=== PATIENT | male | born 1960 | race Caucasian/White ===

== ENCOUNTER 2024-06-03 11:54 | Inpatient (IN) | payer MEDICARE, OTHER, SELFPAY ==
[2024-06-03] VITALS (10 sets, daily range): BP systolic 101–144; BP diastolic 59–104; BMI 26.3; BMI 25.2
--- NOTE | 2024-06-03 09:37 | ED.GENMED ---
History of Present Illness
General
Chief Complaint: Fever
Time Seen by Provider: 06/03/24 09:29
History of Present Illness
History of Present Illness:
64-year-old male presents to the emergency department from [facility] for evaluation of altered mental status and fever as well as hypoxia. First noted this morning. Patient does have vascular dementia but was more confused and fatigued than
normal. Unable to obtain any history from the patient due to altered mental status/baseline dementia. Arrives on supplemental oxygen
Past History
Past History
ED Past Medical History: CAD, HTN, Hypercholesterolemia, MD and Psychiatric
ED Past Surgical History: Cardiac (Cardiac stenting)
Social History
Tobacco: Smoker
Alcohol: Daily (4 [employer] per day)
Drug: None
Personal:
Living: with family
Employment: Employed
Family History
Family History: Early CAD
Review of Systems
Review of Systems
Allergies reviewed?: Yes
All Other Systems: ROS reviewed and negative except as documented in HPI and ROS
Phy Exam
Physical Exam
Physical Exam:
GEN: Ill-appearing, disheveled
Eyes: PERRLA, EOMs intact, no scleral icterus
HENT: NCAT, oral mucosa dry
Lungs: Tachypneic, poor inspiratory effort, mild expiratory wheezes heard throughout
Cardiac: RRR, no M/R/G, no peripheral edema. Radial pulses 2+ bilat
Abdomen: S, NT, ND, NABS, no masses or hepatosplenomegaly
Neuro: Alert, follows commands intermittently, profoundly disoriented
MSK: No gross deformity or ecchymosis. No edema. No digital clubbing
Skin: No rashes, petechiae. Normal color, no pallor or jaundice.
Sepsis
Sepsis Screening
Sepsis Assessment: Sepsis Ruled Out
Sepsis Screen
Sepsis Screen: Sepsis Ruled Out
Date: 06/03/24
Time: 15:47
Course
Orders/Labs/Results
Orders:
Orders
06/03/24 09:36
Straight cath- Treatment ONCE
Acetaminophen [Tylenol/Feverall] 650 mg RECTAL NOW STA
06/03/24 09:37
CR Chest Portable - 1 View Urgent
Comment:
Reason For Exam: fever/hypoxia
Reason Study Needs to be Portable: Other
06/03/24 09:44
COVID-19 Antigen Urgent
Source: Nasal Swab
Complete Blood Count/With Diff Urgent
Comprehensive Metabolic Panel Urgent
Lactic Acid Q4H
Comment: CANCEL 2nd LACTIC ACID IF 1st LACTIC ACID IS LESS THAN 2
Prothrombin Time Urgent
Urinalysis Reflex To Culture Urgent
Date Specimen was Collected: 06/03/24
Time Specimen was Collected: 09:38
Urine Microscopic Reflex Cult Urgent
Blood Culture Q30M
NATALIA Source: Blood/Venous
Specimen Description:
Influenza A+B Rapid Molecular Urgent
NATALIA Source: Nasal Swab
Specimen Description:
06/03/24 09:45
Blood Culture Q30M
NATALIA Source: Blood/Venous
Specimen Description:
06/03/24 10:32
Oseltamivir [Tamiflu] 75 mg PO NOW STA
06/03/24 11:29
Admit/Transfer Patient As Directed
Co-Sign Provider:
Level of Care: Inpatient admission
Assign to:: Telemetry
Physician / Group: Dr. Rome
Diagnosis: Influenza A
Reason for Telemetry: Arrhythmia
Date to Stop Telemetry: 06/06/24
Time to Stop Telemetry: 11:00
Reason for Hospitalization: Patient presented with hypoxia cough shortness of breath and found influenza
Expected length of stay greater than two midnights?: Yes
ELOS- Estimated Length of Stay in days: 2
I certify the patient meets the requirements for IP care: Yes
06/03/24 11:30
PRN Pain Medication Management As Directed
May give lesser potent ordered pain med per pt: Yes
preference::
Protocol:: Medication orders for pain may be administered in a
manner that supports deferring to patient preference
when the pt is:
- Requesting an ordered lesser potent pain medication.
Least to most potent pain medications are defined
as: acetaminophen < NSAID < tramadol < opioids
(morphine, oxycodone, hydromorphone).
- Requesting a lesser dose of the same medication IF
ORDERED.
- Requesting a less intrusive route of administration
if both routes are prescribed by the provider (PO <
IV).
06/03/24 11:32
Code Status As Directed
Resuscitation Status: Full Code
06/03/24 20:00
Oseltamivir Phosphate [Tamiflu] 75 mg PO BID
06/06/24 11:00
DC Protocol for Telemetry ONCE
Abnormal Lab Results
06/03/24
09:44
Absolute Lymphs (auto) 0.5 L 10^3/uL
(1.2-3.4)
Neutrophils % 84.2 H %
(42.2-75.2)
Lymphocytes % 7.2 L %
(20.5-51.1)
Glucose 165 H mg/dl
(70-99)
AST 91 H U/L
(17-59)
Urine Ketones 1+ A
(Negative)
Ur Occult Blood Reflex 2+ A
(Negative)
Urine Bacteria (Reflex) Few A
(Negative)
06/03/24 09:44
06/03/24 09:44
Vital Signs
Initial and Last Documented VS:
Initial Vital Signs
Temp Pulse Resp BP Pulse Ox
103.5 F H 92 22 138/79 88
06/03/24 09:28 06/03/24 09:28 06/03/24 09:28 06/03/24 09:28 06/03/24 09:28
Last Documented Vital Signs
Temp Pulse Resp BP Pulse Ox
99.4 F 86 18 117/104 97
06/03/24 11:40 06/03/24 11:40 06/03/24 11:40 06/03/24 11:40 06/03/24 11:40
MDM/Problems Addressed
MDM/Problems Addressed:
Patient is positive for influenza, mildly hypoxic in the upper 80s. Will admit for supportive management, antiviral started in the emergency department.
*Critical Care Note
Total Time (30-74mins, 75-104mins- exclusive of procedures): Not Applicable
ED Attending Note
-
Portions of this chart may have been created with voice recognition software.� Occasional wrong word or��sound alike� substitutions may have occurred due to the inherent limitations of voice recognition software.
Discharge Plan
Departure
Patient Disposition: Admit
Date of Disposition: 06/03/24
Time of Disposition: 10:29
Admit to: Med/Surg
Presentation/result/management discussed w/ accepting MD/DO: Hospitalist
Discharge Problem:
Influenza A, Acute hypoxemic respiratory failure
Interventions
Interventions:
*Risk Screen - Suicide Last Done: 06/03/24 09:28
*General Assessment Last Done: 06/03/24 09:28
*Neglect/Abuse Screening Last Done: 06/03/24 09:28
ED- Fall Risk Assessment Last Done: 06/03/24 10:03
*ED COVID-19 Vaccine History Last Done: 06/03/24 09:28
ED- Neurological Assessment Last Done: 06/03/24 10:03
ED-Skin Assessment Last Done: 06/03/24 10:03
[2024-06-03] MEDS: TYLENOL/FEVERALL 650 MG RECTAL (09:41)
[2024-06-03 09:59] LABS: % Basophils 0.3 % (0-2); % Eosinophils 0.7 % (0-6); % Immature Granulocytes 0.1 % (0-0.5); % Lymphocytes 7.2 % (20.5-51.1); % Monocytes 7.5 % (1.7-9.3); % Neutrophils 84.2 % (42.2-75.2); Absolute Eosinophils 0.1 10^3/uL (0-0.7); Absolute Lymphocytes 0.5 10^3/uL (1.2-3.4); Absolute Monocytes 0.5 10^3/uL (0.1-0.6); Hematocrit 46.4 % (39.0-52.0); Hemoglobin 15.7 g/dL (13.0-18.0); Mean Corp Hgb Conc. 33.8 g/dL (33.0-37.0); Mean Corpuscular Hgb 29.1 pg (27.0-31.0); Mean Corpuscular Volume 86.1 fL (80.0-94.0); Nucleated Red Blood Cells % 0 % (-); Platelet Count 151 10^3/uL (130-400); Red Blood Cell Count 5.39 10^6/uL (4.70-6.10); Red Cell Dist. Width 13.5 % (11.5-14.5); White Blood Cell Count 7.1 10^3/uL (4.8-10.8)
[2024-06-03 10:10] LABS: Lactic Acid 1.8 mmol/L (0.7-2.0)
--- NOTE | 2024-06-03 10:10 | EDRN ---
the pt is resting in the stretcher in the lowest position, side rails up x2, call rivero within reach, HOB elevated, no s/s of distress, the pt is pleasantly confused, the pt is febrile, rectal tylenol given, labs and swabs obtained and sent, VS WNL,
the pt denies needing anything at this time, will continue to monitor the pt closely
[2024-06-03 10:11] LABS: INR 0.99; PT 13.6 Sec (11.4-14.6)
[2024-06-03 10:18] LABS: ALT (SGPT) 29 U/L (0-50); AST (SGOT) 91 U/L (17-59); Albumin 4.5 g/dl (3.5-5.0); Alkaline Phosphatase 83 U/L (38-126); Blood Urea Nitrogen 18 mg/dl (9-20); Calcium 9.2 mg/dl (8.4-10.2); Carbon Dioxide 27 mmol/L (22-30); Chloride 102 mmol/L (98-107); Estimated Creatinine Clearance 62 ml/min; Glucose 165 mg/dl (70-99); Potassium 4.2 mmol/L (3.5-5.1); Sodium 138 mmol/L (135-145); Total Bilirubin 0.7 mg/dl (0.2-1.3); Total Protein 7.1 g/dl (6.3-8.2); eGFR > 60.00
[2024-06-03 10:24] LABS: COVID-19 Antigen Negative (Negative)
[2024-06-03 10:44] LABS: Urine Albumin Trace (Neg - Trace); Urine Bilirubin Negative (Negative); Urine Character Clear (Clear); Urine Color Yellow; Urine Glucose Negative (Negative); Urine Ketone 1+ (Negative); Urine Leukocyte Negative (Negative); Urine Nitrite Negative (Negative); Urine Occult Blood 2+ (Negative); Urine Urobilinogen Negative (Neg - 1+)
[2024-06-03] MEDS: TAMIFLU 75 MG PO ×2 (11:06→20:27)
[2024-06-03 11:26] LABS: Urine Squamous Cell 0-2 /LPF (Few)
[2024-06-03 11:27] LABS: Urine Bacteria Few (Negative); Urine Red Blood Cell 0-2 /HPF (0-2)
--- NOTE | 2024-06-03 11:35 | HPS.HSE ---
Family Physician
-
Family Physician: Emilio Joiner
Chief Complaint
-
Cough and shortness of breath
History of Present Illness
Patient is 64-year-old male with history of hyperlipidemia, CAD, BPH, schizoaffective disorder came into the hospital with mental status changes fever and hypoxia. Patient has been having cough and shortness of breath over the last few days and he
also has been noticed to be more confused than usual. He expresses significant fatigue. He denies nausea vomiting or diarrhea. He denies chest pain. He denies abdominal pain. He denies dysuria urgency or frequency. He had a fever to 103
Fahrenheit here in the ER and he was hypoxic and placed on supplemental oxygen and he was found to have influenza A. He was referred to hospitalist service for further evaluation
Medical History
Past Medical History
Past Medical History: Reports Other (Hyperlipidemia, schizoaffective disorder, BPH, CAD.)
Past Surgical History: Reports Other (Cardiac cath with PCI's and stents in the past)
Social History
Tobacco: Former Smoker
Alcohol: Occasional
Drug: None
Family History
Family History: Early CAD
Allergies / Home Medications
Allergies reflects when Allergies were last updated in [employer] [facility].
Home Medications with original date entered in [employer]
Allergy/Medication List:
Allergies
Allergy/AdvReac Type Severity Reaction Status Date / Time
risperidone [From Risperdal] Allergy Unknown Unknown Verified 06/03/24 09:37
benztropine mesylate Allergy Blurred Verified 06/03/24 09:37
[From Cogentin] Vision
haloperidol Allergy Rigidity Verified 06/03/24 09:37
Home Medications
aspirin 81 mg tablet,delayed release 81 mg PO DAILY 09/28/10
lithium carbonate 450 mg tablet,extended release 450 mg PO HS 09/28/10
acetaminophen 325 mg tablet (Tylenol) 650 mg PO Q4HPRN PRN MILD PAIN 06/03/24
acetaminophen 500 mg tablet (Tylenol Extra Strength) 1,000 mg PO TIDPRN PRN MODERATE PAIN 06/03/24
atorvastatin 10 mg tablet (Lipitor) 10 mg PO HS 06/03/24
bisacodyl 10 mg rectal suppository (Dulcolax (bisacodyl)) 10 mg WV DAILYPRN PRN IF NO BM AFTR MOM 06/03/24
buspirone 5 mg tablet 5 mg PO BID 06/03/24
diclofenac sodium 1 % topical gel 2 g topical BID LEFT ARM/SHOULDER AND ANN-MARIE 06/03/24
dorzolamide-timolol (PF) 2 %-0.5 % eye drops in a dropperette (Cosopt (PF)) 1 drp BOTH EYES BID 06/03/24
fluticasone propionate 50 mcg/actuation nasal spray,suspension 2 spray intranasal DAILY 06/03/24
ipratropium 0.5 mg-albuterol 3 mg (2.5 mg base)/3 mL nebulization soln 3 ml inhalation R Q4HPRN PRN SOB 06/03/24
ipratropium 0.5 mg-albuterol 3 mg (2.5 mg base)/3 mL nebulization soln 3 ml inhalation R QID 06/03/24
ketoconazole 2 % shampoo 1 applic topical TUFR 06/03/24
latanoprostene bunod 0.024 % eye drops 1 drp BOTH EYES QPM 06/03/24
lidocaine 4 % topical patch 1 patch topical DAILY LEFT UPPER ARM 06/03/24
loperamide 2 mg capsule (Imodium A-D) 2 mg PO Q6HPRN PRN DIARRHEA 06/03/24
magnesium hydroxide 400 mg/5 mL oral suspension (Milk of Magnesia) 2,400 mg PO [id number] PRN CONSTIPATION 06/03/24
melatonin 5 mg tablet 5 mg PO HSPRN PRN SLEEP 06/03/24
miconazole nitrate 2 % topical powder (Antifungal (miconazole)) 1 applic topical BID GROIN 06/03/24
mometasone 0.1 % topical cream 1 applic topical [id number] PRN FACE RASH 06/03/24
nitroglycerin 0.4 mg sublingual tablet (Nitrostat) 0.4 mg sublingual [id number] PRN CHEST PAIN 06/03/24
olanzapine 5 mg tablet (Zyprexa) 5 mg PO HS 06/03/24
sodium phosphates 19 gram-7 gram/118 mL enema (Fleet Enema) 118 ml WV DAILYPRN PRN CONSTIPATION 06/03/24
tamsulosin 0.4 mg capsule (Flomax) 0.4 mg PO HS 06/03/24
Review of Systems
-
A 12 point ROS was completed and negative except as noted: Yes
Physical Exam
Vital Signs
Vital Signs
Temp Pulse Resp BP Pulse Ox
103 F H 87 20 129/76 96
06/03/24 10:00 06/03/24 11:11 06/03/24 11:11 06/03/24 10:00 06/03/24 11:11
Physical exam:
General: Acutely ill
HEENT: Normocephalic, Atraumatic and Moist Mucous Membranes
Respiratory: Relatively clear to Auscultation but some scattered rhonchi; Negative Wheezes, Rales
Cardiac: Regular Rhythm and S1/S2
GI: Soft, Nontender and Nondistended
Musculoskeletal: No Clubbing, No Cyanosis and No Edema
Neuro: Awake, Alert and Oriented
Psych: Calm
Physical Exam
General: Other
Laboratory Results
-
06/03/24 09:44
06/03/24 09:44
Laboratory Results
PT 13.6 Sec (11.4-14.6) 06/03/24 09:44
INR 0.99 06/03/24 09:44
Lactic Acid 1.8 mmol/L (0.7-2.0) 06/03/24 09:44
Total Bilirubin 0.7 mg/dl (0.2-1.3) 06/03/24 09:44
AST 91 U/L (17-59) H 06/03/24 09:44
ALT 29 U/L (0-50) 06/03/24 09:44
Alkaline Phosphatase 83 U/L (38-126) 06/03/24 09:44
Data Reviewed
-
Diagnostic Radiology: Image Personally Visualized and interpreted
Lab Data: Labs Reviewed by me
Impression/Plan
-
IMPRESSION:
Patient is 64-year-old male with multiple comorbidities came into the hospital with hypoxia and fever likely related to influenza A. Patient at increased risk of morbidity mortality due to current active infection therefore will need to be treated
in the hospital and monitor accordingly.
PLAN:
Acute hypoxic respiratory insufficiency:
Bronchodilators
Incentive spirometry
Seen and reviewed chest x-ray and no evidence of acute chest pathology but some atelectasis
Antiviral
Oxygen supplementation
Monitor closely since he is at risk of deterioration
Influenza A:
Tamiflu 75 mg twice a day
Monitor respiratory status closely as above
Febrile illness likely related to influenza:
Follow-up blood cultures
Chest x-ray not significant for consolidation
UA unremarkable
Lactic acid normal 1.8
CAD:
Continue aspirin and statin
Chest pain-free
Cardiac monitoring
Hyperlipidemia:
Continue statin
BPH:
Continue Flomax
Schizoaffective disorder:
Continue Zyprexa 5 mg p.o. nightly and lithium 450 mg p.o. nightly
DVT prophylaxis:
Lovenox SQ
CODE STATUS:
Full code
Time spent 75 minutes
--- NOTE | 2024-06-03 16:20 | PTCARENOTE ---
Received pt from ED.Pt awake, alert and oriented x2 ( disoriented to year/month) confused conversation at times. Mild garbled speech r/t no teeth. Pt has no c/o pain at this time. VSS Low grade temp 100.3. NSR with PVCs BBBc on tele. Pt oriented to
room, call rivero within reach, bed alarm placed for safety, set up for dinner, plan of care continues.
[2024-06-03] MEDS: TYLENOL 650 MG PO (17:25)
[2024-06-03] MEDS: LOVENOX 40 MG SC (17:26)
[2024-06-03] MEDS: ASPIR LOW (ENTERIC COATED) 81 MG PO (17:26)
--- NOTE | 2024-06-03 18:28 | W.PN.UPDATE ---
Update Note
Progress Note Update
Informed by RN pt with fall from bed. seen and examined. 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 Denies headache or neck pain. Talking and repeat same sentence. Pt with hx of psychiatric disorder. Moving all 4 extremities. No other focal deficit. Not on
DOAC. Only on aspirin 81mg.
d/w with RN
CT head and CT cervical spine ordered.
fall precautions
4 side rail ordered '
will continue to monitor closely.
RN informed family already.
--- NOTE | 2024-06-03 18:30 | FALL ---
Addendum entered by Francia Grant RN 06/03/24 20:42:
Med sitter now in place along with physician order for 4 side rails
Original Note:
Description of Fall: Pt was in bed eating dinner bed was slightly raised to allow table to fit for good positioning. Pt on specialty mattress. Pt was checked on 10 minutes prior ,Bed Alarm sounding and heard yelling arrived to find patient laying
naked in between bed and radiator, pt said ' i felt tangled and I was trying to get untangled. Pt reports he did not hit head but appears he may have based on position on ground. Appears he may have rolled out of bed. Pt did have temp of 101.2 prior
received Tylenol at 1725, at time of arrival to room now 98.7 which was around 1800.
Injuries Noted: No injuries noted or c/o pain able to stand and get back to bed with assistance.
Action Taken: Vitals taken and stable. MD made aware and came to eval patient. Pt now laughing about incident saying ' im fine nothing hurts' CT head cervical spine ordered. Daughter Genna updated by this RN. She was not surprised to hear her father
had fallen she said he is very impulsive at [facility] and is often found wandering in his room without his walker.
Name of Provider Notified: Dr Stephens
--- NOTE | 2024-06-03 20:00 | PTCARENOTE ---
high fall risk protocol continued. 4 sides bed rails, bed alarm, video monitoring system, and education to the patient by RN of why is it important to stay in bed. safe environment maintained. call rivero in reach.
[2024-06-03] MEDS: BUSPAR 5 MG PO (20:27)
[2024-06-03] MEDS: DESENEX/MITRAZOL/ZEASORB 1 APPLIC TOPICAL (20:27)
[2024-06-03] MEDS: COSOPT EYE DROPS 1 DROP BOTH EYES (20:28)
[2024-06-03] MEDS: ESKALITH ER (EXTENDED RELEASE) 450 MG PO (21:10)
[2024-06-03] MEDS: XALATAN OPHTHALMIC SOLUTION 1 DROP BOTH EYES (21:10)
[2024-06-03] MEDS: ZYPREXA 5 MG PO (21:10)
[2024-06-03] MEDS: LIPITOR 10 MG PO (21:10)
[2024-06-03] MEDS: FLOMAX 0.4 MG PO (21:10)
[2024-06-04] VITALS (8 sets, daily range): BP systolic 107–132; BP diastolic 54–84; PULSE 77–89; O2SAT 93
[2024-06-04 04:12] LABS: % Basophils 0.2 % (0-2); % Eosinophils 1.9 % (0-6); % Immature Granulocytes 0.2 % (0-0.5); % Lymphocytes 15.8 % (20.5-51.1); % Monocytes 10.2 % (1.7-9.3); % Neutrophils 71.7 % (42.2-75.2); Absolute Eosinophils 0.1 10^3/uL (0-0.7); Absolute Lymphocytes 0.8 10^3/uL (1.2-3.4); Absolute Monocytes 0.5 10^3/uL (0.1-0.6); Absolute Neutrophils 3.8 10^3/uL (1.4-6.5); Hematocrit 44.7 % (39.0-52.0); Hemoglobin 14.8 g/dL (13.0-18.0); Mean Corp Hgb Conc. 33.1 g/dL (33.0-37.0); Mean Corpuscular Hgb 28.7 pg (27.0-31.0); Mean Corpuscular Volume 86.6 fL (80.0-94.0); Mean Platelet Volume 9.8 fL (7.4-10.4); Nucleated Red Blood Cells % 0 % (-); Platelet Count 152 10^3/uL (130-400); Red Blood Cell Count 5.16 10^6/uL (4.70-6.10); Red Cell Dist. Width 13.2 % (11.5-14.5); White Blood Cell Count 5.3 10^3/uL (4.8-10.8)
[2024-06-04 04:40] LABS: Blood Urea Nitrogen 21 mg/dl (9-20); Carbon Dioxide 26 mmol/L (22-30); Chloride 104 mmol/L (98-107); Estimated Creatinine Clearance 75 ml/min; Glucose 100 mg/dl (70-99); Lithium 0.8 mmol/L (0.6-1.2); Potassium 4.3 mmol/L (3.5-5.1); Sodium 139 mmol/L (135-145); eGFR > 60.00
[2024-06-04] MEDS: ASPIR LOW (ENTERIC COATED) 81 MG PO (08:50)
[2024-06-04] MEDS: TAMIFLU 75 MG PO ×2 (08:50→20:46)
[2024-06-04] MEDS: DESENEX/MITRAZOL/ZEASORB 1 APPLIC TOPICAL ×2 (08:50→20:47)
[2024-06-04] MEDS: LIDOCAINE 4% PATCH 1 PATCH TOPICAL (08:50)
[2024-06-04] MEDS: BUSPAR 5 MG PO ×2 (08:50→20:45)
[2024-06-04] MEDS: COSOPT EYE DROPS 1 DROP BOTH EYES ×2 (08:50→20:47)
--- NOTE | 2024-06-04 09:06 | W.PN.HOSP.TC ---
Today's Communication/Plan
-
Tamiflu. Oxygen. PT OT
Assessment / Plan
Assessment / Plan
Physical exam:
General: Acutely ill
HEENT: Normocephalic, Atraumatic and Moist Mucous Membranes
Respiratory: Relatively clear to Auscultation but some scattered rhonchi; Negative Wheezes, Rales
Cardiac: Regular Rhythm and S1/S2
GI: Soft, Nontender and Nondistended
Musculoskeletal: No Clubbing, No Cyanosis and No Edema
Neuro: Awake, Alert and Oriented
Psych: Calm
A/P:
Acute hypoxic respiratory insufficiency:
Bronchodilators
Incentive spirometry
Seen and reviewed chest x-ray and no evidence of acute chest pathology but some atelectasis
Antiviral
Patient pulse ox 93% on 3 L of oxygen
Titrate oxygen as able
PT OT eval
Influenza A:
Tamiflu 75 mg twice a day
Monitor respiratory status closely as above
Febrile illness likely related to influenza:
Follow-up blood cultures--> no growth so far
Chest x-ray not significant for consolidation
UA unremarkable
Lactic acid normal 1.8
Fall and metabolic encephalopathy:
CT of the head and cervical spine unremarkable for any acute findings
Mental status improving
[place] level 0.8
Continue monitor mental status and neurological
CAD:
Continue aspirin and statin
Chest pain-free
Cardiac monitoring
Hyperlipidemia:
Continue statin
BPH:
Continue Flomax
Schizoaffective disorder:
Continue Zyprexa 5 mg p.o. nightly and lithium 450 mg p.o. nightly
DVT prophylaxis:
Lovenox SQ
CODE STATUS:
Full code
Anticipated Discharge: 24 - 48 hours
Subjective/Interval History
-
Date of Service: June 04, 2024
Review events last evening. Patient feels overall better today. More alert. Less shortness of breath and cough. Still on oxygen. Afebrile today
Objective Data
-
Labs:
Laboratory Results
06/04/24
03:52
WBC 5.3
Hgb 14.8
Hct 44.7
Plt Count 152
Sodium 139
Potassium 4.3
Chloride 104
Carbon Dioxide 26
BUN 21 H
Creatinine 0.9
Glucose 100 H
Calcium 9.0
Vital Signs:
Vital Signs
Temp Pulse Resp BP Pulse Ox
99.3 F 79 22 108/75 93
06/04/24 07:25 06/04/24 07:25 06/04/24 07:25 06/04/24 07:25 06/04/24 07:25
I&O
06/03/24 06/04/24 06/05/24
06:59 06:59 06:59
Output Total 300 / 300
Balance -300 / -300
--- NOTE | 2024-06-04 09:29 | PTOTSP ---
Dysphagia Evaluation
Patient presents with signs concerning for at least mild oral stage dysphagia impacted by lack of dentition and acute illness with the flu. Recommend temporary diet modifications as outlined below.
Recommend:
1. IDDSI Level 5 Minced and Moist, Thin Liquids
2. Medications as best tolerated
3. General aspiration precautions
4. Dysphagia therapy follow up at the acute care level to determine if/when diet advancement appropriate.
--- NOTE | 2024-06-04 10:52 | PTCARENOTE ---
pt confused agitated at times. yelling out. 4 rail up in bed will follow commands. states no pain [id number]. breath sounds course. med sitter in room.
[2024-06-04] MEDS: LOVENOX 40 MG SC (17:23)
[2024-06-04] MEDS: FLOMAX 0.4 MG PO (20:46)
[2024-06-04] MEDS: ESKALITH ER (EXTENDED RELEASE) 450 MG PO (20:46)
[2024-06-04] MEDS: LIPITOR 10 MG PO (20:46)
[2024-06-04] MEDS: ZYPREXA 5 MG PO (20:47)
[2024-06-04] MEDS: XALATAN OPHTHALMIC SOLUTION 1 DROP BOTH EYES (20:47)
[2024-06-05] VITALS (7 sets, daily range): BP systolic 99–120; BP diastolic 46–75
--- NOTE | 2024-06-05 02:37 | PTCARENOTE ---
Pt. remains intermittently confused this shift, falls asleep and then wakes up, calls out - forgets he's in the hospital. Threatens to leave, attempting to get OOB. Easily reoriented. Bed alarm and med-sitter on; orders for 4 side rails renewed.
Pulse ox 3L 92-94%, some HENSON assessed, lungs coarse. Pt. uses urinal but spills & is also incontinent at times. Sleeping at this time.
[2024-06-05 07:45] LABS: % Basophils 0.4 % (0-2); % Eosinophils 4.9 % (0-6); % Immature Granulocytes 0.4 % (0-0.5); % Lymphocytes 20.8 % (20.5-51.1); % Monocytes 10.8 % (1.7-9.3); % Neutrophils 62.7 % (42.2-75.2); Absolute Eosinophils 0.2 10^3/uL (0-0.7); Absolute Monocytes 0.5 10^3/uL (0.1-0.6); Absolute Neutrophils 3.1 10^3/uL (1.4-6.5); Hemoglobin 14.2 g/dL (13.0-18.0); Mean Corp Hgb Conc. 33.8 g/dL (33.0-37.0); Mean Corpuscular Hgb 29.3 pg (27.0-31.0); Mean Corpuscular Volume 86.6 fL (80.0-94.0); Mean Platelet Volume 10.1 fL (7.4-10.4); Nucleated Red Blood Cells % 0 % (-); Platelet Count 150 10^3/uL (130-400); Red Blood Cell Count 4.85 10^6/uL (4.70-6.10); Red Cell Dist. Width 13.2 % (11.5-14.5); White Blood Cell Count 4.9 10^3/uL (4.8-10.8)
[2024-06-05 07:58] LABS: Blood Urea Nitrogen 22 mg/dl (9-20); Carbon Dioxide 27 mmol/L (22-30); Chloride 101 mmol/L (98-107); Estimated Creatinine Clearance 75 ml/min; Glucose 102 mg/dl (70-99); Potassium 3.8 mmol/L (3.5-5.1); Sodium 137 mmol/L (135-145); eGFR > 60.00
--- NOTE | 2024-06-05 09:57 | W.PN.HOSP.TC ---
Today's Communication/Plan
-
Tamiflu. Discharge planning
Assessment / Plan
Assessment / Plan
Physical exam:
General: Acutely ill
HEENT: Normocephalic, Atraumatic and Moist Mucous Membranes
Respiratory: Relatively clear to Auscultation but some scattered rhonchi; Negative Wheezes, Rales
Cardiac: Regular Rhythm and S1/S2
GI: Soft, Nontender and Nondistended
Musculoskeletal: No Clubbing, No Cyanosis and No Edema
Neuro: Awake, Alert and Oriented
Psych: Calm
A/P:
Acute hypoxic respiratory insufficiency:
Bronchodilators
Incentive spirometry
Seen and reviewed chest x-ray and no evidence of acute chest pathology but some atelectasis
Antiviral
Patient on room air today
PT OT eval
manager farm for discharge disposition
Influenza A:
Tamiflu 75 mg twice a day
Monitor respiratory status closely as above
Febrile illness likely related to influenza:
Follow-up blood cultures--> no growth so far
Chest x-ray not significant for consolidation
UA unremarkable
Lactic acid normal 1.8
Fall and metabolic encephalopathy:
CT of the head and cervical spine unremarkable for any acute findings
Mental status improving
[place] level 0.8
Continue monitor mental status and neurological
CAD:
Continue aspirin and statin
Chest pain-free
Cardiac monitoring
Hyperlipidemia:
Continue statin
BPH:
Continue Flomax
Schizoaffective disorder:
Continue Zyprexa 5 mg p.o. nightly and lithium 450 mg p.o. nightly
DVT prophylaxis:
Lovenox SQ
CODE STATUS:
Full code
Anticipated Discharge: 24 - 48 hours
Subjective/Interval History
-
Date of Service: June 05, 2024
Patient on room air today. No shortness of breath or chest pain. Afebrile
Objective Data
-
Labs:
Laboratory Results
06/05/24
07:13
WBC 4.9
Hgb 14.2
Hct 42.0
Plt Count 150
Sodium 137
Potassium 3.8
Chloride 101
Carbon Dioxide 27
BUN 22 H
Creatinine 0.9
Glucose 102 H
Calcium 9.0
Vital Signs:
Vital Signs
Temp Pulse Resp BP Pulse Ox
98.7 F 68 18 103/46 98
06/05/24 07:30 06/05/24 07:30 06/05/24 07:30 06/05/24 07:30 06/05/24 07:30
I&O
06/04/24 06/05/24 06/06/24
06:59 06:59 06:59
Intake Total 960 / 960
Output Total 300 / 300 1170 / 1170
Balance -300 / -300 -210 / -210
[2024-06-05] MEDS: BUSPAR 5 MG PO ×2 (10:02→21:15)
[2024-06-05] MEDS: COSOPT EYE DROPS 1 DROP BOTH EYES ×2 (10:03→21:15)
[2024-06-05] MEDS: DESENEX/MITRAZOL/ZEASORB 1 APPLIC TOPICAL ×2 (10:03→21:16)
[2024-06-05] MEDS: TAMIFLU 75 MG PO ×2 (10:05→21:16)
[2024-06-05] MEDS: ASPIR LOW (ENTERIC COATED) 81 MG PO (10:05)
[2024-06-05] MEDS: LIDOCAINE 4% PATCH 1 PATCH TOPICAL (10:06)
--- NOTE | 2024-06-05 13:57 | PTCARENOTE ---
Patient is refusing to wear tele monitor. Patient stated 'you can shove it up your ass.' Dr. Rome aware.
[2024-06-05] MEDS: LOVENOX 40 MG SC (16:49)
[2024-06-05] MEDS: FLOMAX 0.4 MG PO (21:17)
[2024-06-05] MEDS: ESKALITH ER (EXTENDED RELEASE) 450 MG PO (21:17)
[2024-06-05] MEDS: XALATAN OPHTHALMIC SOLUTION 1 DROP BOTH EYES (21:17)
[2024-06-05] MEDS: ZYPREXA 5 MG PO (21:17)
[2024-06-05] MEDS: LIPITOR 10 MG PO (21:17)
[2024-06-06 03:58] VITALS: BP 126/76
[2024-06-06 07:30] VITALS: BP 126/78
[2024-06-06 08:05] LABS: Hematocrit 43.1 % (39.0-52.0); Mean Corp Hgb Conc. 34.8 g/dL (33.0-37.0); Mean Corpuscular Hgb 29.1 pg (27.0-31.0); Mean Corpuscular Volume 83.5 fL (80.0-94.0); Mean Platelet Volume 10.2 fL (7.4-10.4); Platelet Count 159 10^3/uL (130-400); Red Blood Cell Count 5.16 10^6/uL (4.70-6.10); Red Cell Dist. Width 12.9 % (11.5-14.5); White Blood Cell Count 4.8 10^3/uL (4.8-10.8)
--- NOTE | 2024-06-06 08:29 | W.PN.HOSP.TC ---
Today's Communication/Plan
-
Discharge planning.
Assessment / Plan
Assessment / Plan
Physical exam:
General: Acutely ill
HEENT: Normocephalic, Atraumatic and Moist Mucous Membranes
Respiratory: Relatively clear to Auscultation but some scattered rhonchi; Negative Wheezes, Rales
Cardiac: Regular Rhythm and S1/S2
GI: Soft, Nontender and Nondistended
Musculoskeletal: No Clubbing, No Cyanosis and No Edema
Neuro: Awake, Alert and Oriented
Psych: Calm
A/P:
Acute hypoxic respiratory insufficiency:
Bronchodilators
Incentive spirometry
Seen and reviewed chest x-ray and no evidence of acute chest pathology but some atelectasis
Antiviral
Patient on room air today
PT OT eval
Started discharge paperwork
manager appointment for discharge disposition--> discussed with patient case manager, Tonya today and told her that he is medically cleared to go back to his facility today. Awaiting for patient case manager coordination.
Influenza A:
Tamiflu 75 mg twice a day and complete a 5 days course
Monitor respiratory status closely as above
Febrile illness likely related to influenza:
Follow-up blood cultures--> no growth so far
Chest x-ray not significant for consolidation
UA unremarkable
Lactic acid normal 1.8
Fall and metabolic encephalopathy:
CT of the head and cervical spine unremarkable for any acute findings
Mental status improving
[place] level 0.8
Continue monitor mental status and neurological
CAD:
Continue aspirin and statin
Chest pain-free
Cardiac monitoring
Hyperlipidemia:
Continue statin
BPH:
Continue Flomax
Schizoaffective disorder:
Continue Zyprexa 5 mg p.o. nightly and lithium 450 mg p.o. nightly
DVT prophylaxis:
Lovenox SQ
CODE STATUS:
Full code
Anticipated Discharge: Today
Subjective/Interval History
-
Date of Service: June 06, 2024
Patient voices no new complaints. Afebrile. On room air
Objective Data
-
Labs:
Laboratory Results
06/06/24
07:41
WBC 4.8
Hgb 15.0
Hct 43.1
Plt Count 159
Sodium Pending
Potassium Pending
Chloride Pending
Carbon Dioxide Pending
BUN Pending
Creatinine Pending
Glucose Pending
Calcium Pending
Vital Signs:
Vital Signs
Temp Pulse Resp BP Pulse Ox
98.4 F 70 16 126/76 97
06/06/24 03:58 06/06/24 03:58 06/06/24 03:58 06/06/24 03:58 06/06/24 03:58
I&O
06/05/24 06/06/24 06/07/24
06:59 06:59 06:59
Intake Total 960 / 960 1080 / 1080
Output Total 1170 / 1170 800 / 800
Balance -210 / -210 280 / 280
[2024-06-06 08:38] LABS: Blood Urea Nitrogen 20 mg/dl (9-20); Calcium 9.3 mg/dl (8.4-10.2); Carbon Dioxide 28 mmol/L (22-30); Chloride 100 mmol/L (98-107); Estimated Creatinine Clearance 75 ml/min; Glucose 93 mg/dl (70-99); Potassium 3.8 mmol/L (3.5-5.1); Sodium 138 mmol/L (135-145); eGFR > 60.00
--- NOTE | 2024-06-06 08:57 | CM ---
Addendum entered by Galilea Duckworth RN 06/06/24 14:01:
Spoke with Andreina, [facility]; they are able to accept the patient back today. The ph for report [phone], fax [phone]. Andreina was notified that patient is in isolation for Influenza.
Met with patient and spoke with daughter Joan by phone; both agree to d/c today by ambulance back to [facility]. IMM completed with patient.
Plan return to [facility] today by ambulance.
Original Note:
Patient from [facility] with Hx Schizoaffective Disorder. Room air. Receiving Tamiflu. Dysphagia diet. Seen by [facility] recommends skilled rehab. OT Eval; return to LTC.
Spoke with Andreina [facility] yesterday;
the patient resides there in LTC with an MA bed hold.
Patient is A/O at baseline, assisted with ADLs, w/c bound and is able to transfer to a w/c.
No current PT provided.
The ph for report [phone], fax [phone].
Plan return to [facility] when medically ready.
[2024-06-06] MEDS: ASPIR LOW (ENTERIC COATED) 81 MG PO (09:17)
[2024-06-06] MEDS: BUSPAR 5 MG PO (09:17)
[2024-06-06] MEDS: DESENEX/MITRAZOL/ZEASORB 1 APPLIC TOPICAL (09:17)
[2024-06-06] MEDS: COSOPT EYE DROPS 1 DROP BOTH EYES (09:17)
[2024-06-06] MEDS: TAMIFLU 75 MG PO (09:17)
[2024-06-06] MEDS: LIDOCAINE 4% PATCH 1 PATCH TOPICAL (09:21)
[2024-06-06 11:30] VITALS: BP 108/57
--- NOTE | 2024-06-06 13:31 | W.DCSUMMARY ---
Discharge Summary
Discharge Data
Date of Admission: 06/03/24
Date of Discharge: 06/06/24
-
Pending Results: No
Hospital Course
Patient is 64-year-old with history of schizoaffective disorder came into the hospital with fever and hypoxia. Patient found to have influenza A. He was treated with Tamiflu and oxygen supplementation. He was given supportive care. There was no
indication for antibiotic or steroids. Patient had a mild fall and mild delirium and had CT scan of the head and neck without any acute abnormalities. Patient mentation improved. Patient participated with PT and OT. Patient did well rest of
hospital stay. decision support manager to discuss skilled rehab. He can be discharged in relatively stable condition today back to his facility.
Discharge duration: 35 minutes
Discharge Plan
-
Patient Disposition: Snf/SNF
Discharge Diagnosis/Procedures: Acute hypoxic respiratory insufficiency. Influenza A. Metabolic encephalopathy.
Diet: Low Cholesterol
Activity: As tolerated
Blood Work: Please PCP to order CBC, BMP within 1 week
Referrals:
Emilio Joiner I., DO [Family Provider] - in less than 1 week
Prescriptions:
New
oseltamivir 75 mg Capsule
75 mg PO BID 2 Days Qty: 4 0RF
famotidine [Pepcid] 20 mg tablet
20 mg PO DAILY Qty: 30 0RF
Continued
aspirin 81 MG tablet,delayed release (DR/EC)
81 mg PO DAILY
lithium carbonate 450 mg Tablet Extended Release
450 mg PO HS
buspirone 5 mg Tablet
5 mg PO BID
acetaminophen [Tylenol] 325 mg Tablet
650 mg PO Q4HPRN PRN (Reason: MILD PAIN)
ipratropium-albuterol 0.5 mg-3 mg(2.5 mg base)/3 mL Solution For Nebulization
3 ml INHALATION R QID
ipratropium-albuterol 0.5 mg-3 mg(2.5 mg base)/3 mL Solution For Nebulization
3 ml INHALATION R Q4HPRN PRN (Reason: SOB)
ketoconazole 2 % Shampoo
1 applic TOPICAL TUFR
lidocaine 4 % Adhesive Patch,Medicated
1 patch TOPICAL DAILY
loperamide [Imodium A-D] 2 mg Capsule
2 mg PO Q6HPRN PRN (Reason: DIARRHEA)
atorvastatin [Lipitor] 10 mg Tablet
10 mg PO HS
olanzapine [Zyprexa] 5 mg Tablet
5 mg PO HS
miconazole nitrate [Antifungal (miconazole)] 2 % Powder
1 applic TOPICAL BID
acetaminophen [Tylenol Extra Strength] 500 mg Tablet
1,000 mg PO TIDPRN PRN (Reason: MODERATE PAIN)
magnesium hydroxide [Milk of Magnesia] 400 mg/5 mL Suspension
2,400 mg PO [id number] PRN (Reason: CONSTIPATION)
tamsulosin [Flomax] 0.4 mg Capsule
0.4 mg PO HS
bisacodyl [Dulcolax (bisacodyl)] 10 mg Suppository
10 mg OR DAILYPRN PRN (Reason: IF NO BM AFTR MOM)
Fleet Enema 19-7 gram/118 mL Enema
118 ml OR DAILYPRN PRN (Reason: CONSTIPATION)
nitroglycerin [Nitrostat] 0.4 mg Tablet, Sublingual
0.4 mg SUBLINGUAL [id number] PRN (Reason: CHEST PAIN)
fluticasone propionate 50 mcg/actuation [place],Suspension
2 spray INTRANASAL DAILY
mometasone 0.1 % Cream
1 applic TOPICAL [id number] PRN (Reason: FACE RASH)
diclofenac sodium 1 % Gel
2 g TOPICAL BID MDD 32G
melatonin 5 mg Tablet
5 mg PO HSPRN PRN (Reason: SLEEP)
dorzolamide-timolol (PF) [Cosopt (PF)] 2-0.5 % Dropperette
1 drp BOTH EYES BID
latanoprostene bunod 0.024 % Drops
1 drp BOTH EYES QPM
Discharge Orders:
Discharge Patient (As Directed); Ordered 06/06/24
Ordered By: Brooks Rome
Discharge Date and Time
Print Language: MONGOLIAN
[2024-06-06] MEDS: PEPCID 20 MG PO (13:43)
[2024-06-06 15:25] VITALS: BP 117/69
== END 2024-06-06 17:01 | DRG 193 ==
LOC: 4 EAST ACU 11:54
PROVIDERS: Physician Assistant; ADMITTING PHYSICIAN Hospitalist; EMERGENCY PHYSICIAN Student in an Organized Health Care Education/Training Program; FAMILY PHYSICIAN Internal Medicine
DX: J10.1 Influenza due to other identified influenza virus with other respiratory manifestations (principal); G93.41 Metabolic encephalopathy; I25.10 Atherosclerotic heart disease of native coronary artery without angina pectoris; I10 Essential (primary) hypertension; F25.9 Schizoaffective disorder, unspecified; F17.290 Nicotine dependence, other tobacco product, uncomplicated; E78.00 Pure hypercholesterolemia, unspecified; F01.50 Vascular dementia, unspecified severity, without behavioral disturbance, psychotic disturbance, mood disturbance, and anxiety; N40.0 Benign prostatic hyperplasia without lower urinary tract symptoms; R06.89 Other abnormalities of breathing; R09.02 Hypoxemia; Z95.5 Presence of coronary angioplasty implant and graft; Z79.82 Long term (current) use of aspirin; Z79.899 Other long term (current) drug therapy; Z20.822 Contact with and (suspected) exposure to COVID-19
CPT/HCPCS: 51701; 70450; 71045; 72125; 80048; 80053; 80178; 81003; 81015; 83605; 85025; 85027; 85610; 87040; 87070; 87502; 87811; 92610; 97161; 97167; 97530; 99285

== ENCOUNTER 2025-01-29 21:08 | Inpatient (IN) | payer MEDICARE, OTHER, SELFPAY ==
[2025-01-29 15:14] VITALS: BP 136/89
--- NOTE | 2025-01-29 16:14 | EDRN ---
Patient assisted to the bathroom. Patient one person assist to the toilet.
[2025-01-29 18:24] VITALS: BMI 26.0
--- NOTE | 2025-01-29 18:49 | ED.GENMED ---
History of Present Illness
General
Chief Complaint: Fall
Source: patient, ambulance crew and fpc
Exam Limitations: none
Time Seen by Provider: 01/29/25 18:08
Nursing documentation reviewed up to this point in time: agreed with
History of Present Illness
History of Present Illness:
65-year-old male presenting from nursing facility after described mechanical fall hitting his head and also his left shoulder. Patient is not on any specific blood thinners. During my initial assessment patient had no specific complaints other
than some shoulder pain. Denies nausea vomiting chest pain shortness of breath.
Past History
Past History
ED Past Medical History: CAD, HTN, Hypercholesterolemia, SD and Psychiatric
ED Past Surgical History: Cardiac (Cardiac stenting)
Social History
Tobacco: Smoker
Alcohol: Daily (4 [place] per day)
Drug: None
Personal:
Living: with family
Employment: Employed
Family History
Family History: Early CAD
Review of Systems
Review of Systems
Allergies reviewed?: Yes
All Other Systems: ROS reviewed and negative except as documented in HPI and ROS
Phy Exam
Physical Exam
Physical Exam:
GENERAL: Alert , in no apparent distress
EYE: pupils equal and reactive
NECK: Supple, no significant adenopathy.
ENT: o/p clr, mmm.
CARDIAC: Regular rate and rhythm .
LUNGS: Clear breath sounds bilaterally, no acute respiratory distress, no wheezes/rales/rhonchi
ABDOMEN: Soft, without focal tenderness, no r/g, no cvat
NEUROLOGICAL: Alert and oriented, no focal neuro deficits
SKIN: Warm and dry, skin intact.
MUSCULOSKELETAL: No edema, well perfused.
PSYCH: Normal and appropriate interaction.
Course
Orders/Labs/Results
Orders:
Orders
01/29/25 15:16
EKG [Electrocardiogram (*1)] Urgent
Reason for Study: Bradycardia / Tachycardia
CT Cervical Spine W/o Iv Contr Urgent
Comment:
Reason For Exam: fall
CT Head W/o Iv Contrast Urgent
Comment:
Reason For Exam: fall
Shoulder, Left 2 View CR [CR Shoulder - Left Min 2 View*] Urgent
Comment:
Reason For Exam: fall
01/29/25 15:17
EKG- Treatment ONCE
01/29/25 19:10
EKG [Electrocardiogram (*1)] Urgent
Reason for Study: Chest Pain
EKG- Treatment ONCE
Urinalysis Reflex To Culture Urgent
Aspirin 325 mg PO NOW STA
Famotidine [Pepcid] 40 mg PO NOW STA
Chest [CR Chest - 2 Views ] Urgent
Comment:
Reason For Exam: cp fall today
01/29/25 19:20
CBC/With Diff [Complete Blood Count/With Diff] Urgent
CMP [Comprehensive Metabolic Panel] Urgent
Troponin I Urgent
01/29/25 20:30
PTT Urgent
Comment: Obtain baseline before beginning heparin infusion if not already collected
Heparin 4,000 units IV NOW STA
Heparin 23802 Units/250 ml 25,000 units in 250 ml IV PER PROTOCOL
Weight to be used for heparin protocol in kilograms (kg):: 77
Protocol:: Cardiac Tx/Acute Coronary
PTT Goal Range to be used:: PTT 73 to 111 seconds
Order type:: Initial
INITIAL Infusion Dose (UNITS/KG/hr) & then follow protocol:: 15 units/kg/hr
Infusion Dose in UNITS/hr & then follow protocol (UNITS/hr):: 1,150
INFUSION RATE in mL/hr & then follow protocol (mL/hr):: 11.5
PTT less than or equal to 64 seconds:: Increase rate by 200 units/hr (+ 2 mL/hr)
PTT 64.1 to 72.9 seconds:: Increase rate by 100 units/hr (+ 1 mL/hr)
PTT 73 to 111 seconds:: Target Range. No change in rate.
PTT 111.1 to 130.9 seconds:: Decrease rate by 100 units/hr (- 1 mL/hr)
PTT 131 to 199.9 seconds:: HOLD for 1 hr. Then decrease rate by 200 units/hr (- 2 mL/hr)
PTT greater than or equal to 200 seconds:: HOLD for 2 hrs & Notify Provider. Then decrease by 200 units/hr (-
2 mL/hr)
Lab follow-up:: Each change, PTT q6h until 2 consecutive are therapeutic. Then PTT
daily.
Pharmacy Request to Place See Dose Instructions PO NOW STA
Discontinue all Active Warfarin orders?: Yes
Nursing to Place Non Medication Order As Directed
Physician Order: PTT 6 hours after initial start of Heparin infusion
01/29/25 21:[address] See Dose Instructions IV DIRECTED
Abnormal Lab Results
01/29/25
19:20
Absolute Neuts (auto) 7.3 H 10^3/uL
(1.4-6.5)
Absolute Monos (auto) 0.7 H 10^3/uL
(0.1-0.6)
Lymphocytes % 15.3 L %
(20.5-51.1)
Glucose 102 H mg/dl
(70-99)
Troponin I 0.037 H* ng/ml
01/29/25 19:20
01/29/25 19:20
Vital Signs
Initial and Last Documented VS:
Initial Vital Signs
Temp Pulse Resp BP Pulse Ox
99 F 76 19 136/89 95
01/29/25 15:14 01/29/25 15:14 01/29/25 15:14 01/29/25 15:14 01/29/25 15:14
Last Documented Vital Signs
Temp Pulse Resp BP Pulse Ox
99 F 71 18 130/85 95
01/29/25 15:14 01/29/25 20:00 01/29/25 20:00 01/29/25 19:57 01/29/25 20:00
MDM/Problems Addressed
MDM/Problems Addressed:
65-year-old male presenting to the ER after describing chemical fall at his nursing facility. Apparently hit his left shoulder and head though no visible signs of trauma does have some reproducible pain to the left deltoid region no overlying skin
changes no redness or warmth. CT scan of the head and neck without emergent findings x-ray of the shoulder without emergent findings as well. EKG with nonspecific changes last EKG was 12 years ago patient denied any chest pain initially. At time
of discharge patient claims that he started having chest pain he thought it was reflux was requesting some for reflux. Concerning the nonspecific EKG changes plan to get additional testing with troponin labs as well as a chest x-ray. EKG repeated
with T wave inversions in inferior and anterior leads. Also troponin elevated to 0.037. Case discussed with cardiology recommending admission with heparin dosing.
*Pulse Oximetry
SaO2: 95
Oxygen Mode of Delivery: Room air
Patient hypoxic: no (95)
*Critical Care Note
Total Time (30-74mins, 75-104mins- exclusive of procedures): Not Applicable
ED Attending Note
-
Portions of this chart may have been created with voice recognition software.� Occasional wrong word or��sound alike� substitutions may have occurred due to the inherent limitations of voice recognition software.
Discharge Plan
Departure
Patient Disposition: Admit
Date of Disposition: 01/29/25
Time of Disposition: 20:32
Admit to: Telemetry
Admit to doctor: Migdalia
Presentation/result/management discussed w/ accepting MD/DO: Hospitalist
Patient with high blood pressure during this ER visit?: No
Condition: Good
Covid-19: Not Applicable
Discharge Problem:
Fall, Acute shoulder pain, Non-ST elevation SD (NSTEMI)
Prescriptions:
No Action
aspirin 81 MG tablet,delayed release (DR/EC)
81 mg PO DAILY
lithium carbonate 450 mg Tablet Extended Release
450 mg PO HS
buspirone 5 mg Tablet
5 mg PO BID
acetaminophen [Tylenol] 325 mg Tablet
650 mg PO Q4HPRN PRN (Reason: MILD PAIN)
ipratropium-albuterol 0.5 mg-3 mg(2.5 mg base)/3 mL Solution For Nebulization
3 ml INHALATION R QID
ipratropium-albuterol 0.5 mg-3 mg(2.5 mg base)/3 mL Solution For Nebulization
3 ml INHALATION R Q4HPRN PRN (Reason: SOB)
ketoconazole 2 % Shampoo
1 applic TOPICAL TUFR
lidocaine 4 % Adhesive Patch,Medicated
1 patch TOPICAL DAILY
loperamide [Imodium A-D] 2 mg Capsule
2 mg PO Q6HPRN PRN (Reason: DIARRHEA)
atorvastatin [Lipitor] 10 mg Tablet
10 mg PO HS
olanzapine [Zyprexa] 5 mg Tablet
5 mg PO HS
miconazole nitrate [Antifungal (miconazole)] 2 % Powder
1 applic TOPICAL BID
acetaminophen [Tylenol Extra Strength] 500 mg Tablet
1,000 mg PO TIDPRN PRN (Reason: MODERATE PAIN)
magnesium hydroxide [Milk of Magnesia] 400 mg/5 mL Suspension
2,400 mg PO [id number] PRN (Reason: CONSTIPATION)
tamsulosin [Flomax] 0.4 mg Capsule
0.4 mg PO HS
bisacodyl [Dulcolax (bisacodyl)] 10 mg Suppository
10 mg DE DAILYPRN PRN (Reason: IF NO BM AFTR MOM)
Fleet Enema 19-7 gram/118 mL Enema
118 ml DE DAILYPRN PRN (Reason: CONSTIPATION)
nitroglycerin [Nitrostat] 0.4 mg Tablet, Sublingual
0.4 mg SUBLINGUAL [id number] PRN (Reason: CHEST PAIN)
fluticasone propionate 50 mcg/actuation [place],Suspension
2 spray INTRANASAL DAILY
mometasone 0.1 % Cream
1 applic TOPICAL [id number] PRN (Reason: FACE RASH)
diclofenac sodium 1 % Gel
2 g TOPICAL BID MDD 32G
melatonin 5 mg Tablet
5 mg PO HSPRN PRN (Reason: SLEEP)
dorzolamide-timolol (PF) [Cosopt (PF)] 2-0.5 % Dropperette
1 drp BOTH EYES BID
latanoprostene bunod 0.024 % Drops
1 drp BOTH EYES QPM
oseltamivir 75 mg Capsule
75 mg PO BID 2 Days Qty: 4 0RF
famotidine [Pepcid] 20 mg tablet
20 mg PO DAILY Qty: 30 0RF
Referrals:
Emilio Joiner DO [Family Provider, Internal Medicine]
Philippe Rosales MD [Active, Cardiology] - Follow up in 5-7 days
Activity Restrictions/Additional Instructions:
You came to the emergency department today after a fall. Here your traumatic workup was normal with a normal head and neck CT as well as well as a normal x-ray. Your EKG had very nonspecific findings you can follow-up with cardiology for this.
Additionally had an incidental finding that may require additional testing as an outpatient on your CT scan. Return for any worsening, new or concerning symptoms.
Interventions
Interventions:
*Risk Screen - Suicide Last Done: 01/29/25 15:14
*General Assessment Last Done: 01/29/25 15:14
*Neglect/Abuse Screening Last Done: 01/29/25 15:14
*ED- Fall Risk Assessment Last Done: 01/29/25 18:25
*ED COVID-19 Vaccine History Last Done: 01/29/25 18:25
ED-Musculoskeletal Assessment Last Done: 01/29/25 18:25
ED- Neurological Assessment Last Done: 01/29/25 18:25
ED-Skin Assessment Last Done: 01/29/25 18:25
Discharge Date and Time
Print Language: SOUTH SUDANESE
[2025-01-29] MEDS: PEPCID 40 MG PO (19:16)
[2025-01-29] MEDS: ASPIRIN 325 MG PO (19:16)
[2025-01-29 19:24] VITALS: BP 149/85
[2025-01-29 19:33] LABS: Hematocrit 50.5 % (39.0-52.0); Hemoglobin 17.0 g/dL (13.0-18.0); Mean Corp Hgb Conc. 33.7 g/dL (33.0-37.0); Mean Corpuscular Volume 85.6 fL (80.0-94.0); Nucleated Red Blood Cells % 0 % (-); Platelet Count 208 10^3/uL (130-400); Red Cell Dist. Width 13.3 % (11.5-14.5)
[2025-01-29 19:55] LABS: ALT (SGPT) 28 U/L (0-50); AST (SGOT) 22 U/L (17-59); Albumin 5.0 g/dl (3.5-5.0); Alkaline Phosphatase 79 U/L (38-126); Blood Urea Nitrogen 17 mg/dl (9-20); Calcium 10.0 mg/dl (8.4-10.2); Carbon Dioxide 28 mmol/L (22-30); Chloride 104 mmol/L (98-107); Estimated Creatinine Clearance 76 ml/min; Glucose 102 mg/dl (70-99); Potassium 4.5 mmol/L (3.5-5.1); Sodium 140 mmol/L (135-145); Total Protein 7.7 g/dl (6.3-8.2); eGFR > 60.00
[2025-01-29 19:57] VITALS: BP 130/85
[2025-01-29 19:57] LABS: Troponin I 0.037 ng/ml
--- NOTE | 2025-01-29 20:36 | HPS.HSE ---
Family Physician
-
Family Physician: Emliio Joiner
Chief Complaint
-
fall
History of Present Illness
65-year-old mal with PMH for CAD,HTN, Anxiety, HLD, schizophrenia presenting from nursing facility after a fall. he lost the balance, fell and hit head and shoulder on the floor. denied ALEJANDRO, dizzy or syncope. denied fever,chills. denied chest pain
but he has chronic sob. denied abdominal pain,n,v,d. denied dysuria or hematuria.
Upon arrival he was noted to have elevated troponin and EKG changes. Received a dose of aspirin and initiated on heparin drip. Admitting for further management
Medical History
Past Medical History
Past Medical History: Reports Other
Additional Past Medical History:
Schizophrenia
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
Carpal tunnel syndrome
Cervical disorder
Sacral mass of liver
Anxiety
Cataract
Cognitive communication deficit
Vascular dementia
Hyperlipidemia
Macular degeneration
Osteoarthritis
Past Surgical History: Reports Other
Additional Past Surgical History:
Coronary artery bypass graft
Cardiac stents
Social History
Tobacco: Former Smoker
Alcohol: Former
Drug: None
Living: Group Home
Family History
Family History: Not pertinent
Allergies / Home Medications
Allergies reflects when Allergies were last updated in [facility].
Home Medications with original date entered in [facility]
Allergy/Medication List:
Allergies
Allergy/AdvReac Type Severity Reaction Status Date / Time
benztropine mesylate (From Allergy Blurred Verified 06/03/24 09:37
Cogentin) Vision
haloperidol Allergy Rigidity Verified 06/03/24 16:12
risperidone (From Risperdal) Allergy Unknown Verified 06/03/24 16:12
Home Medications
aspirin 81 mg tablet,delayed release 81 mg PO DAILY Blood Clot Prevention/Tx 09/28/10
lithium carbonate 450 mg tablet,extended release 450 mg PO HS Mental Health/Anxiety 09/28/10
acetaminophen 325 mg tablet (Tylenol) 650 mg PO Q4HPRN PRN MILD PAIN 06/03/24
acetaminophen 500 mg tablet (Tylenol Extra Strength) 1,000 mg PO TIDPRN PRN MODERATE PAIN 06/03/24
atorvastatin 10 mg tablet (Lipitor) 10 mg PO HS High Cholesterol 06/03/24
bisacodyl 10 mg rectal suppository (Dulcolax (bisacodyl)) 10 mg MD DAILYPRN PRN IF NO BM AFTR MOM 06/03/24
buspirone 5 mg tablet 5 mg PO BID Mental Health/Anxiety 06/03/24
dorzolamide-timolol (PF) 2 %-0.5 % eye drops in a dropperette (Cosopt (PF)) 1 drp BOTH EYES BID Eye Condition 06/03/24
fluticasone propionate 50 mcg/actuation nasal spray,suspension 2 spray intranasal DAILY Allergies 06/03/24
ipratropium 0.5 mg-albuterol 3 mg (2.5 mg base)/3 mL nebulization soln 3 ml inhalation R Q4HPRN PRN SOB 06/03/24
ipratropium 0.5 mg-albuterol 3 mg (2.5 mg base)/3 mL nebulization soln 3 ml inhalation R QID Lung/Breathing Issues 06/03/24
ketoconazole 2 % shampoo 1 applic topical TUFR Skin Issues 06/03/24
latanoprostene bunod 0.024 % eye drops 1 drp BOTH EYES QPM Eye Condition 06/03/24
lidocaine 4 % topical patch 1 patch topical DAILY LEFT UPPER ARM 06/03/24
loperamide 2 mg capsule (Imodium A-D) 2 mg PO Q6HPRN PRN DIARRHEA 06/03/24
magnesium hydroxide 400 mg/5 mL oral suspension (Milk of Magnesia) 2,400 mg PO [id number] PRN CONSTIPATION 06/03/24
melatonin 5 mg tablet 5 mg PO HSPRN PRN SLEEP 06/03/24
miconazole nitrate 2 % topical powder (Antifungal (miconazole)) 1 applic topical BID GROIN 06/03/24
mometasone 0.1 % topical cream 1 applic topical [id number] PRN FACE RASH 06/03/24
nitroglycerin 0.4 mg sublingual tablet (Nitrostat) 0.4 mg sublingual [id number] PRN CHEST PAIN 06/03/24
olanzapine 5 mg tablet (Zyprexa) 5 mg PO HS Mental Health/Anxiety 06/03/24
sodium phosphates 19 gram-7 gram/118 mL enema (Fleet Enema) 118 ml MD DAILYPRN PRN CONSTIPATION 06/03/24
buspirone 5 mg tablet 2.5 mg PO DAILY 01/29/25
diclofenac sodium 1 % topical gel 2 g topical QID 01/29/25
Review of Systems
-
Constitutional: Reports No Symptoms
EENT: Reports No Symptoms
Respiratory: Reports No Symptoms
Cardiac: Reports No Symptoms
Abdomen/GI: Reports No Symptoms
: Reports No Symptoms
Musculoskeletal: Reports No Symptoms
Skin: Reports No Symptoms
Neurological: Reports No Symptoms
Endocrine: Reports No Symptoms
Hematologic/Lymphatic: Reports No Symptoms
Psych: Reports No Symptoms
Physical Exam
Vital Signs
Vital Signs
Temp Pulse Resp BP Pulse Ox
99 F 71 18 130/85 95
01/29/25 15:14 01/29/25 20:00 01/29/25 20:00 01/29/25 19:57 01/29/25 20:00
Physical Exam
General: Well Developed, Well Nourished and No Apparent Distress
HEENT: NormoCephalic, Moist mucous membranes and Atraumatic
Respiratory: Clear
Cardiac: S1/S2 and Regular Rhythm; No Murmur or Rub
GI: Soft, Non Tender, Non Distended and Normal Bowel Sounds; No Organomegaly
Rectal: Deferred by Provider
Musculoskeletal: No Clubbing, No Cyanosis and No Edema
Skin: No Rash
Neuro: AO x 3 and Nonfocal/grossly intact
Psych: Calm
Laboratory Results
-
01/29/25 19:20
01/29/25 19:20
Laboratory Results
Total Bilirubin 1.0 mg/dl (0.2-1.3) 01/29/25 19:20
AST 22 U/L (17-59) 01/29/25 19:20
ALT 28 U/L (0-50) 01/29/25 19:20
Alkaline Phosphatase 79 U/L (38-126) 01/29/25 19:20
Troponin I 0.037 ng/ml H* 01/29/25 19:20
Data Reviewed
-
Diagnostic Radiology: Report Reviewed by me
CT Scan: Report Reviewed by me
Lab Data: Labs Reviewed by me
Impression/Plan
-
# NSTEMI
- EKG with anterior and inferior T wave inversions
-Continue to trend Trope
- Aspirin continued
-Heparin drip continued-
-cardiology consulted
- Chest x-ray with no acute findings
# Mechanical fall
- X-ray shoulder with no acute fracture or dislocation
- Head CT No acute intracranial abnormality. No acute intracranial hemorrhage or extra-axial collection. No skull fracture. Stable findings consistent with known cavernous venous malformations.
- Cervical spine CT with impression of No fracture identified.Stable multilevel degenerative changes, as detailed above.Unusual appearance of the posterior left third rib on the axial scan, which is not as apparent on the coronal reformatted
reconstructions. [place] to be artifactual in nature. However, consider follow-up nonemergent CT examination of the chest to exclude the possibility of a permeative lytic lesion.
-PT/OT consulted
#CAD:
-Continue aspirin and statin
#Hyperlipidemia:
Continue statin
#Schizoaffective disorder:
Continue Zyprexa 5 mg p.o. nightly and lithium 450 mg p.o. nightly
-obtain lithium level
#DVT prophylaxis:
Heparin
#CODE STATUS:
-Full code
--- NOTE | 2025-01-29 20:52 | W.PN.UPDATE ---
Update Note
Progress Note Update
This note serves as an addendum to the H&P by mixer and blender NICA�
Luisa CONNOR
HPI
65M from assisted living resident of [place],reports essentially WC bound, chr ambulatory dysfunction, Smoker, HX daily ETOH use with PMHX CAD, HTN, Hypercholesterolemia, [place], schizoaffective disordered, at ER
- s/p mechanical fall hitting his head and also his left shoulder.
- not on any specific blood thinners.
- no specific complaints other than some shoulder pain.
- Daily 4 [place] per day
Denies nausea vomiting chest pain shortness of breath.
ER evaluation noted elevated TPNI and abn EKG thus admission
Relevant VS
PE
Gen: NAD
HEENT: supple
Neck: supple
Lungs: CTA
Cor: RRR S1 S2
Abdomen:�soft NT NG NRT
CEMENT FINISHER HELPER: grossly NFND
MS: no edema
Psych: appropriate interaction, slow cognitive speed , forgetfull
Relevant Data
EKG
SINUS RHYTHM WITH 1ST DEGREE A-V BLOCK
RIGHT BUNDLE BRANCH BLOCK
INFERIOR INFARCT (CITED ON OR BEFORE 26-Dec-2003)
ANTERIOR INFARCT (CITED ON OR BEFORE 25-Oct-1999)
T WAVE ABNORMALITY, CONSIDER LATERAL ISCHEMIA
ABNORMAL ECG
WHEN COMPARED WITH ECG OF 29-Jan-2025 15:23,
INVERTED T WAVES HAVE REPLACED NONSPECIFIC T WAVE ABNORMALITY IN INFERIOR LEADS
CXR: NAD
L shoulder XR:
- no acute fracture or dislocation or shoulder separation. No abnormal soft tissue calcification.
HCT:
No acute intracranial abnormality. No acute intracranial hemorrhage or extra-axial collection. No skull fracture. Stable findings consistent with known cavernous venous malformations.
CT Cervical Spine W/o Iv Contr:
- No fracture identified.
- Stable multilevel degenerative changes, as detailed above.
12/12/20 TTE
LVEF 40-45
Akinetic basal inferior wall .
Aneurysmal , dyskinetic inferoapical/apical wall
No significant valve stenosis or regurgitation detected.
Last hospitalist admission: Date of Admission: 06/03/24 - Date of Discharge: 06/06/24
DC Dx: Acute hypoxic respiratory insufficiency. Influenza A. Metabolic encephalopathy.
ASSESSMENT & PLAN
Elevated TPNI with abn EKG
CP free
CAD HX
- further w/u for ACS
- ER dw Dr Acuña - then initiated Heparin gtt
- on CARDIOLOGY ASSOCIATE aspirin and statin
- Cardiac monitoring
- CBC card consulted
Fall
No acute Fx evidence by XR, CT Cervical Spine W/o Iv Contr
- PT, OT
Hyperlipidemia
- on CARDIOLOGY ASSOCIATE statin
BPH HX
- on CARDIOLOGY ASSOCIATE Flomax
Schizoaffective disorder
Cognitive dysfunction suspect chronic ( MCI vs mild dementia) NOS
HX ETOH use disorder
- on CARDIOLOGY ASSOCIATE Zyprexa HS and lithium 450 mg HS
- [place] level
Assisted living resident of local [place]
- reports essentially WC bound
- chr ambulatory dysfunction
DVT Px: LMWH
Ful code
IP TLM
[2025-01-29 20:53] LABS: APTT 30.4 Sec (23.4-35.0)
[2025-01-29] MEDS: HEPARIN 4000 UNITS IV (21:29)
[2025-01-29] MEDS: HEPARIN 25000 UNITS/250 ML IV (21:31)
[2025-01-29 21:32] VITALS: BP 113/68
[2025-01-29 21:45] LABS: Urine Character Clear (Clear)
[2025-01-29 22:00] VITALS: BP 118/94
[2025-01-29 22:45] VITALS: BP 135/83; BMI 25.4
[2025-01-29 23:07] LABS: Lithium 0.5 mmol/L (0.6-1.2)
[2025-01-29 23:32] LABS: Troponin I 0.045 ng/ml
[2025-01-30] MEDS: ESKALITH ER (EXTENDED RELEASE) 450 MG PO ×2 (00:02→20:08)
[2025-01-30] MEDS: LIPITOR 10 MG PO ×2 (00:03→20:08)
[2025-01-30] MEDS: ZYPREXA 5 MG PO ×2 (00:03→21:00)
[2025-01-30 03:30] LABS: APTT 106.6 Sec (23.4-35.0)
[2025-01-30 03:41] VITALS: BP 112/67
[2025-01-30 04:03] LABS: Troponin I 0.046 ng/ml
[2025-01-30 06:00] VITALS: BMI 25.6
[2025-01-30 07:00] VITALS: BP 112/68
[2025-01-30] MEDS: ASPIR LOW (ENTERIC COATED) 81 MG PO (08:54)
[2025-01-30] MEDS: BUSPAR 2.5 MG PO (08:55)
[2025-01-30] MEDS: LIDOCAINE 4% PATCH 1 PATCH TOPICAL (08:55)
[2025-01-30] MEDS: BUSPAR 5 MG PO ×2 (08:55→20:08)
[2025-01-30] MEDS: TRUSOPT 2% OPHTHALMIC SOLUTION 1 DROP BOTH EYES ×2 (08:56→19:48)
[2025-01-30] MEDS: TIMOPTIC 0.5% OPHTHALMIC SOLUTION 1 DROP BOTH EYES ×2 (08:57→19:48)
--- NOTE | 2025-01-30 09:16 | CON.CAR ---
Consultation
Consultation Request
Date/Time Consultation Requested: 01/30/2025
Date/Time Consultation Performed: 01/30/2025
Requesting Provider: Dr. Manning
Performing Provider: Dr. Acuña
Reason for Consultation: Abnormal troponin
Medical History
-
Chief Complaint: Fall
History of Present Illness:
65-year-old male (previously known to Dr. Martinez; last seen as an outpatient in 2000) with coronary artery disease status-post CABG x 2 (2012; noncompliant with outpatient Cardiology follow-up), previous remote coronary stenting (2000), chronic
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
ambulatory dysfunction admitted after a fall whereby the patient lost his balance. The patient denies chest pain, but states that he has chronic shortness of breath. Cardiology was consulted for slightly elevated cardiac troponin. The patient is
a poor historian and does not quite answer questions appropriately.
Past Medical History
Past Medical History: CAD (CABG 2012 and previous stenting, PCI 2000), Hypercholesterolemia and Psychiatric (bipolar)
Past Surgical History: Cardiac (CABG 2012 and previous stenting, PCI 2000)
Social History
Tobacco: Former Smoker
Alcohol: Daily (4 beers)
Drug: None
Living: Assisted Living
Employment: Not Employed
Family History
Family History: Unable to Obtain (Poor historian)
Allergies / Home Medications
Allergy/AdvReac Type Severity Reaction Status Date / Time
benztropine mesylate (From Allergy Blurred Verified 06/03/24 09:37
Cogentin) Vision
haloperidol Allergy Rigidity Verified 06/03/24 16:12
risperidone (From Risperdal) Allergy Unknown Verified 06/03/24 16:12
�Medication �Instructions �Recorded �Confirmed �Type
aspirin 81 mg tablet,delayed 81 mg PO DAILY Blood Clot 09/28/10 01/29/25 History
release Prevention/Tx
lithium carbonate 450 mg 450 mg PO HS Mental Health/Anxiety 09/28/10 01/29/25 History
tablet,extended release
acetaminophen 325 mg tablet 650 mg PO Q4HPRN PRN MILD PAIN 06/03/24 01/29/25 History
(Tylenol)
acetaminophen 500 mg tablet 1,000 mg PO TIDPRN PRN MODERATE 06/03/24 01/29/25 History
(Tylenol Extra Strength) PAIN
atorvastatin 10 mg tablet (Lipitor) 10 mg PO HS High Cholesterol 06/03/24 01/29/25 History
bisacodyl 10 mg rectal suppository 10 mg AR DAILYPRN PRN IF NO BM 06/03/24 06/03/24 History
(Dulcolax (bisacodyl)) AFTR MOM
buspirone 5 mg tablet 5 mg PO BID Mental Health/Anxiety 06/03/24 01/29/25 History
dorzolamide-timolol (PF) 2 %-0.5 % 1 drp BOTH EYES BID Eye Condition 06/03/24 01/29/25 History
eye drops in a dropperette (Cosopt
(PF))
fluticasone propionate 50 2 spray intranasal DAILY Allergies 06/03/24 01/29/25 History
mcg/actuation nasal
spray,suspension
ipratropium 0.5 mg-albuterol 3 mg 3 ml inhalation R Q4HPRN PRN SOB 06/03/24 01/29/25 History
(2.5 mg base)/3 mL nebulization
soln
ipratropium 0.5 mg-albuterol 3 mg 3 ml inhalation R QID 06/03/24 01/29/25 History
(2.5 mg base)/3 mL nebulization Lung/Breathing Issues
soln
ketoconazole 2 % shampoo 1 applic topical TUFR Skin Issues 06/03/24 01/29/25 History
latanoprostene bunod 0.024 % eye 1 drp BOTH EYES QPM Eye Condition 06/03/24 01/29/25 History
drops
lidocaine 4 % topical patch 1 patch topical DAILY LEFT UPPER 06/03/24 01/29/25 History
ARM
loperamide 2 mg capsule (Imodium 2 mg PO Q6HPRN PRN DIARRHEA 06/03/24 01/29/25 History
A-D)
magnesium hydroxide 400 mg/5 mL 2,400 mg PO [id number] PRN 06/03/24 01/29/25 History
oral suspension (Milk of Magnesia) CONSTIPATION
melatonin 5 mg tablet 5 mg PO HSPRN PRN SLEEP 06/03/24 01/29/25 History
miconazole nitrate 2 % topical 1 applic topical BID GROIN 06/03/24 01/29/25 History
powder (Antifungal (miconazole))
mometasone 0.1 % topical cream 1 applic topical [id number] PRN FACE 06/03/24 01/29/25 History
RASH
nitroglycerin 0.4 mg sublingual 0.4 mg sublingual [id number] PRN 06/03/24 01/29/25 History
tablet (Nitrostat) CHEST PAIN
olanzapine 5 mg tablet (Zyprexa) 5 mg PO HS Mental Health/Anxiety 06/03/24 01/29/25 History
sodium phosphates 19 gram-7 118 ml AR DAILYPRN PRN CONSTIPATION 06/03/24 01/29/25 History
gram/118 mL enema (Fleet Enema)
buspirone 5 mg tablet 2.5 mg PO DAILY 01/29/25 01/29/25 History
diclofenac sodium 1 % topical gel 2 g topical QID 01/29/25 01/29/25 History
Review of Systems
-
Unable to obtain full review of systems at this time due to: Dementia
History Source: Transfer Record and Other (Medical record)
Physical Exam
Vital Signs
Temp Pulse Resp BP Pulse Ox
97.7 F 65 20 112/68 95
01/30/25 07:00 01/30/25 07:00 01/30/25 07:00 01/30/25 07:00 01/30/25 07:00
Lab Results
01/29/25 19:20
01/29/25 19:20
Troponin I 0.046 ng/ml H* 01/30/25 03:10
Physical Exam
General: Well Developed and No Apparent Distress
HEENT: Anicteric
Respiratory: Clear
Cardiac: S1/S2
Breast: N/A
GI: Soft
Rectal: Deferred by Provider
Musculoskeletal: No Clubbing, No Cyanosis and No Edema
Skin: Warm and Dry
Neuro: Awake and Alert
Psych: Calm
Impression / Plan
-
65-year-old male (previously known to Dr. Martinez; last seen as an outpatient in 2000) with coronary artery disease status-post CABG x 2 (2012; noncompliant with outpatient Cardiology follow-up), previous remote coronary stenting (2000), chronic
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
ambulatory dysfunction admitted after a fall whereby the patient lost his balance. The patient denies chest pain, but states that he has chronic shortness of breath. Cardiology was consulted for slightly elevated cardiac troponin. The patient is
a poor historian and does not quite answer questions appropriately.
Abnormal troponin:
- Etiology unclear; possibly secondary to NSTEMI (but patient has no chest pain) versus acute nonischemic myocardial injury in the setting of metabolic encephalopathy.
- Can continue heparin drip for 24 hours after peak (0.037-->0.045-->0.046).
- Patient has been noncompliant with outpatient Cardiology follow-up; will try to manage conservatively.
- Will obtain an echocardiogram and stress test tomorrow; NPO after midnight.
- Continue aspirin and atorvastatin; no beta-ann secondary to baseline low heart rates.
Chronic HFmrEF/ICM (40-45%):
- Compensated on examination.
- GDMT selected has previously been limited secondary to heart rate, blood pressure, and patient noncompliance/lack of Cardiology follow-up.
Hyperlipidemia:
- Current status unknown; lipid panel pending.
- Continue current dose of atorvastatin for now.
Fall:
- Most likely secondary to ambulatory dysfunction and possible intoxication.
- PT/OT.
EtOH abuse:
- Drinks 4 beers daily.
- Management as per primary team; monitor for withdrawal.
- Cessation recommended; ideally, should seek assistance.
Data Reviewed
-
EKG: Tracing Personally Visualized and interpreted (Sinus rhythm at 70 bpm with first-degree AV block and right bundle branch block (unchanged from 1999).)
Medical Tests (Nuc Med, Echo etc): Report Reviewed by me (Transthoracic echocardiogram (12/12/2020): LVEF 40-45%, akinetic basal inferior wall.)
Labs: Labs Reviewed by me
[2025-01-30 09:43] LABS: APTT 116.6 Sec (23.4-35.0)
[2025-01-30 09:57] LABS: HDL Cholesterol 34 mg/dl; LDL Cholesterol, Calculated 48 mg/dl; Very Low Density Lipoprotein 28 mg/dl (0-30)
--- NOTE | 2025-01-30 10:11 | CM ---
Patient seen bedside, initial assessment completed. Patient is a 65-year-old mal with PMH for CAD,HTN, Anxiety, HLD, schizophrenia presenting from nursing facility after a fall.
Patient is a LTC resident at [facility]. Patient is w/c bound at baseline, assisted w/ bathing and dressing. Patient can toilet and transfer in and out of w/c independently. Patient denies receiving physical therapy at SNF at this time.
PCP: Emilio Joiner
Pharmacy: [facility]
PT/OT evals ordered, pending assessments
Plan: Return to [facility] when medically stable
[2025-01-30 10:22] LABS: Troponin I 0.048 ng/ml
--- NOTE | 2025-01-30 10:55 | W.PN.HOSP.TC ---
Today's Communication/Plan
-
see A/P
Assessment / Plan
Assessment / Plan
HPI: 65M from assisted living, chronic ambulatory dysfunction/ WC bound, Smoker, HX daily ETOH use, PMH CAD, HTN, Hypercholesterolemia, AK, schizoaffective disordered; p/w mechanical fall, hitting his head and also his left shoulder.
He is not on blood thinners. Denies to specific complaints other than some shoulder pain. Daily 4 [place] per day
ER evaluation noted elevated troponin and abnormal EKG.
CXR: NAD
L shoulder XR: no acute fracture or dislocation or shoulder separation. No abnormal soft tissue calcification.
HCT: No acute intracranial abnormality. No acute intracranial hemorrhage or extra-axial collection. No skull fracture. Stable findings consistent with known cavernous venous malformations.
CT Cervical Spine W/o Iv Contr:
No fracture identified.
Stable multilevel degenerative changes, as detailed above.
A/P:
# Elevated troponin, unclear cause currently
# h/o CAD
Pt is chest pain free
Troponin 0.037 -> 0.048, trend until peak
cont Heparin drip, cont current ASA
Card on board, [facility] echo and plan for stress test
# Mechanical Fall
No acute fracture noted on imaging
PT, OT eval
# Hyperlipidemia
statin
# BPH HX
Flomax
# Schizoaffective disorder
# Cognitive dysfunction suspect chronic MCI vs mild dementia
# HX ETOH use disorder
Cont [employer] Zyprexa HS and lithium 450 mg HS
[place] level low at 0.5 on admission
# Assisted living [place]
# chronic ambulatory dysfunction
Essentially WC bound at baseline
DVT ppx: heparin drip
Ful code
DW Card
updated daughter on the phone
total time spent 51 min
Anticipated Discharge: 24 - 48 hours
Subjective/Interval History
-
Date of Service: January 30, 2025
Objective Data
-
Labs:
Laboratory Results
01/30/25 01/30/25 01/30/25
03:10 09:09 15:50
APTT 106.6 H 116.6 H Pending
Vital Signs:
Vital Signs
Temp Pulse Resp BP Pulse Ox
36.5 C 65 20 112/68 95
01/30/25 07:00 01/30/25 07:00 01/30/25 07:00 01/30/25 07:00 01/30/25 07:00
I&O
01/29/25 01/30/25 01/31/25
06:59 06:59 06:59
Intake Total 69 / 69
Output Total 300 / 300 225 / 225
Balance -231 / -231 -225 / -225
Review of Systems
-
All other systems: Reviewed and negative
Constitutional: Reports No Symptoms
Cardiac: Denies Chest Pain
Physical Exam
-
General: Well Developed, Well Nourished, No Apparent Distress, Comfortable and Conversant
HEENT: Normocephalic, Atraumatic, Nose Appears Normal and Ears Appear Normal
Respiratory: Clear to Auscultation and Non Labored Respirations; Negative Accessory Resp Muscle Use
Cardiac: Regular Rhythm and S1/S2
GI: Soft, Nontender, Nondistended and Normal Bowel Sounds
Skin: Warm and Dry
Neuro: Awake and Alert
Psych: Calm and Intact Judgement/Insight (somewhat)
Data Reviewed
-
Labs: Labs Reviewed by me
[2025-01-30 11:46] VITALS: BP 108/66
[2025-01-30 11:55] LABS: Glycohemoglobin (HgbA1c) 5.3 % (4.0-5.6)
[2025-01-30 15:02] VITALS: BP 141/95
[2025-01-30 16:22] LABS: APTT 116.1 Sec (23.4-35.0)
[2025-01-30] MEDS: ZYPREXA ZYDIS (ORALLY DISINTEGRATING) 5 MG PO (16:49)
[2025-01-30] MEDS: XALATAN OPHTHALMIC SOLUTION 1 DROP BOTH EYES (17:13)
--- NOTE | 2025-01-30 17:32 | PTCARENOTE ---
Prt was originally in 409-2. He became disruptive (screaming and yelling) while threatening his roommate and staff. There was an attempt to get a private room and/or a sitter. Neither were able to happen The pt repeatedly set off bed alarm. He came
to the hospital s/p fall at [facility] point. This pt was moved to a room closer to the Nurses station 411-2. While in this room the same behaviors were happening. There was no sitter so I had a tech sit with this pt so he would not continue to get
out of the bed. Another RN overheard the pt stating 'I am going to get out of this bed and fall on the floor' so the tech then went back in to sit with him. I reached out to the MD for something to help with his agitation, order was placed and med
was given. Vitals stable and Heparin gtt is infusing without issue.
[2025-01-30 20:00] VITALS: BP 141/76
[2025-01-30] MEDS: MELATONIN 5 MG PO (22:01)
[2025-01-30] MEDS: HEPARIN 25000 UNITS/250 ML IV (22:03)
[2025-01-30 23:00] LABS: APTT 64.3 Sec (23.4-35.0)
[2025-01-30 23:18] VITALS: BP 96/55
[2025-01-31] VITALS (7 sets, daily range): BP systolic 110–136; BP diastolic 59–78; PULSE 69; O2SAT 98; BMI 25.6
[2025-01-31] MEDS: TYLENOL 650 MG PO (03:40)
[2025-01-31 07:31] LABS: APTT 78.9 Sec (23.4-35.0)
[2025-01-31 07:42] LABS: Hematocrit 44.5 % (39.0-52.0); Hemoglobin 15.0 g/dL (13.0-18.0); Mean Corp Hgb Conc. 33.7 g/dL (33.0-37.0); Mean Corpuscular Volume 85.9 fL (80.0-94.0); Platelet Count 160 10^3/uL (130-400); Red Cell Dist. Width 13.3 % (11.5-14.5)
[2025-01-31 07:48] LABS: Blood Urea Nitrogen 20 mg/dl (9-20); Calcium 9.4 mg/dl (8.4-10.2); Carbon Dioxide 26 mmol/L (22-30); Chloride 109 mmol/L (98-107); Estimated Creatinine Clearance 84 ml/min; Glucose 99 mg/dl (70-99); Magnesium 2.2 mg/dl (1.6-2.3); Potassium 4.1 mmol/L (3.5-5.1); Sodium 140 mmol/L (135-145); eGFR > 60.00
[2025-01-31] MEDS: LIDOCAINE 4% PATCH 1 PATCH TOPICAL (08:34)
[2025-01-31] MEDS: BUSPAR 2.5 MG PO (08:35)
[2025-01-31] MEDS: ASPIR LOW (ENTERIC COATED) 81 MG PO (08:35)
[2025-01-31] MEDS: TRUSOPT 2% OPHTHALMIC SOLUTION 1 DROP BOTH EYES ×2 (08:36→19:38)
[2025-01-31] MEDS: BUSPAR 5 MG PO ×2 (08:36→19:38)
[2025-01-31] MEDS: TIMOPTIC 0.5% OPHTHALMIC SOLUTION 1 DROP BOTH EYES ×2 (08:36→19:38)
--- NOTE | 2025-01-31 09:41 | W.PN.CD ---
Today's Communication / Plan
-
For echo and stress
Impression / Plan
-
65-year-old male (previously known to Dr. Martinez; last seen as an outpatient in 2000) with coronary artery disease status-post CABG x 2 (2012; noncompliant with outpatient Cardiology follow-up), previous remote coronary stenting (2000), chronic
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
ambulatory dysfunction admitted after a fall whereby the patient lost his balance. The patient denies chest pain, but states that he has chronic shortness of breath. Cardiology was consulted for slightly elevated cardiac troponin. The patient is
a poor historian and does not quite answer questions appropriately.
Abnormal troponin:
- Stop IV heparin
- Proceed to echo and stress test
Chronic HFmrEF/ICM (40-45%):
- Compensated on examination.
- GDMT selected has previously been limited secondary to heart rate, blood pressure, and patient noncompliance/lack of Cardiology follow-up.
Hyperlipidemia=> LDL at goal of less than 55. Continue statin at current outpatient dose
Fall, We do not suspect syncope/cardiac cause
Alcohol use disorder: I suggested abstinence
Subjective: No CP or dyspnea
Physical Exam
Vital Signs/Labs
Vital Signs
Temp Pulse Resp BP Pulse Ox
98.6 F 66 18 121/68 100
01/31/25 07:51 01/31/25 07:51 01/31/25 07:51 01/31/25 07:51 01/31/25 07:51
01/30/25 01/31/25 02/01/25
06:59 06:59 06:59
Actual Weight 74.049 kg 73.992 kg
01/31/25 07:05
01/31/25 07:05
APTT 78.9 Sec (23.4-35.0) H 01/31/25 07:05
Magnesium 2.2 mg/dl (1.6-2.3) 01/31/25 07:05
Triglycerides 142 mg/dl (10-149) 01/30/25 09:09
LDL Cholesterol, Calc 48 mg/dl 01/30/25 09:09
VLDL Cholesterol, Calc 28 mg/dl (0-30) 01/30/25 09:09
HDL Cholesterol 34 mg/dl 01/30/25 09:09
LAB Results
01/29/25 01/29/25 01/30/25
19:20 23:02 03:10
Troponin I 0.037 H* 0.045 H* 0.046 H*
01/30/25
09:41
Troponin I 0.048 H*
Physical Exam
Constitutional: No acute distress
Cardiovascular: Rhythm & rate is regular and Pedal edema is absent
Respiratory: Respiratory effort normal and Lungs clear to auscul.
GI: Distention absent
Neuro/Psych: AO x 3
Data Reviewed
-
Date of Service: January 31, 2025
--- NOTE | 2025-01-31 10:09 | W.PN.HOSP.TC ---
Today's Communication/Plan
-
see A/P
Assessment / Plan
Assessment / Plan
HPI: 65M from assisted living, chronic ambulatory dysfunction/ WC bound, Smoker, HX daily ETOH use, PMH CAD, HTN, Hypercholesterolemia, [place], schizoaffective disordered; p/w mechanical fall, hitting his head and also his left shoulder.
He is not on blood thinners. Denies to specific complaints other than some shoulder pain. Daily 4 [place] per day
ER evaluation noted elevated troponin and abnormal EKG.
CXR: NAD
L shoulder XR: no acute fracture or dislocation or shoulder separation. No abnormal soft tissue calcification.
HCT: No acute intracranial abnormality. No acute intracranial hemorrhage or extra-axial collection. No skull fracture. Stable findings consistent with known cavernous venous malformations.
CT Cervical Spine W/o Iv Contr:
No fracture identified.
Stable multilevel degenerative changes, as detailed above.
A/P:
# Elevated troponin, unclear cause currently
# h/o CAD
Pt is chest pain free
Troponin 0.037 -> 0.048, trend until peak
s/p stress test 01/31, follow formal report
Echo 01/31/2025: unrevealing, normal left ventricular size with mildly reduced systolic function. LVEF 40%. Akinesis of the basal inferior wall. Apical aneurysm. No significant valvular disease. Unchanged compared to prior echocardiogram in 2020.
off Heparin drip, cont current ASA
Card on board
# Mechanical Fall
No acute fracture noted on imaging
PT, OT eval to follow
# Hyperlipidemia
statin
# BPH HX
Flomax
# Schizoaffective disorder
# Cognitive dysfunction suspect chronic MCI vs mild dementia
# HX ETOH use disorder
Cont [employer] Zyprexa HS and lithium 450 mg HS
[place] level low at 0.5 on admission
# Assisted living [place] of local [place]
# chronic ambulatory dysfunction
Essentially WC bound at baseline
DVT ppx: off heparin drip, cover with Lovenox SQ
Ful code
DW RN
Anticipated Discharge: 24 - 48 hours
Subjective/Interval History
-
Date of Service: January 31, 2025
Objective Data
-
Labs:
Laboratory Results
01/30/25 01/31/25 01/31/25
22:43 07:05 14:10
WBC 7.5
Hgb 15.0
Hct 44.5
Plt Count 160 D
APTT 64.3 H 78.9 H Pending
Sodium 140
Potassium 4.1
Chloride 109 H
Carbon Dioxide 26
BUN 20
Creatinine 0.8
Glucose 99
Calcium 9.4
Vital Signs:
Vital Signs
Temp Pulse Resp BP Pulse Ox
37.0 C 66 18 121/68 100
01/31/25 07:51 01/31/25 07:51 01/31/25 07:51 01/31/25 07:51 01/31/25 07:51
I&O
01/30/25 01/31/25 02/01/25
06:59 06:59 06:59
Intake Total 69 / 69 600 / 600
Output Total 300 / 300 1000 / 1000
Balance -231 / -231 -400 / -400
Review of Systems
-
All other systems: Reviewed and negative
Constitutional: Reports No Symptoms
Cardiac: Denies Chest Pain
Physical Exam
-
General: Well Developed, Well Nourished, No Apparent Distress, Comfortable and Conversant
HEENT: Normocephalic, Atraumatic, Nose Appears Normal and Ears Appear Normal
Respiratory: Clear to Auscultation and Non Labored Respirations; Negative Accessory Resp Muscle Use
Cardiac: Regular Rhythm and S1/S2
GI: Soft, Nontender, Nondistended and Normal Bowel Sounds
Skin: Warm and Dry
Neuro: Awake and Alert
Psych: Calm and Intact Judgement/Insight (somewhat)
Data Reviewed
-
Medical Tests (Nuc Med, Echo etc): Report Reviewed by me (echo)
Labs: Labs Reviewed by me
--- NOTE | 2025-01-31 11:00 | CARDSERVLU ---
Echocardiogram with [facility] completed after protocol screening completed. Allergies verified.
Patent IV site: __L AC___
IV site flushed with 0.9% NaCl pre and post administration.
Diluted bolus method utilized to enhance visualization of ventricular medrano.
Total volume given: ___4_ mL
Patient tolerated all procedures well without complications.
[2025-01-31] MEDS: LEXISCAN 0.4 MG IV (12:14)
[2025-01-31] MEDS: FLUSH (NSS) 1 FLUSH IV (12:15)
[2025-01-31] MEDS: AMINOPHYLLINE 75 MG IV (12:16)
--- NOTE | 2025-01-31 12:56 | CM ---
Patient off floor for Cardiac testing.
Patient is LTC resident at [facility].
Plan: back to [facility] when stable.
[facility]
report# [phone]
--- NOTE | 2025-01-31 15:39 | PTOTSP ---
pt currently requires supervision to minimal assistance to complete functional transfers. pt requires assistance with ADLs at baseline. no acute OT needs identified at this time, will sign off.
--- NOTE | 2025-01-31 15:44 | PTOTSP ---
Pt appears to be at his baseline which is nonambulatory. He is able to transfer with contact guard to supervision. No acute PT needs identified. Nursing staff encourages OOB as tolerated. PT will sign off.
[2025-01-31] MEDS: LOVENOX 40 MG SC (17:37)
[2025-01-31] MEDS: XALATAN OPHTHALMIC SOLUTION 1 DROP BOTH EYES (17:38)
[2025-01-31] MEDS: LIPITOR 10 MG PO (21:46)
[2025-01-31] MEDS: MELATONIN 5 MG PO (21:46)
[2025-01-31] MEDS: ESKALITH ER (EXTENDED RELEASE) 450 MG PO (21:46)
[2025-01-31] MEDS: ZYPREXA 5 MG PO (21:46)
[2025-02-01 03:16] VITALS: BP 108/57
[2025-02-01 06:00] VITALS: BMI 24.4
[2025-02-01 07:51] VITALS: BP 129/75
[2025-02-01 07:54] LABS: Hematocrit 46.0 % (39.0-52.0); Hemoglobin 15.1 g/dL (13.0-18.0); Mean Corp Hgb Conc. 32.8 g/dL (33.0-37.0); Mean Corpuscular Volume 87.1 fL (80.0-94.0); Platelet Count 171 10^3/uL (130-400); Red Cell Dist. Width 13.3 % (11.5-14.5)
[2025-02-01 08:20] LABS: Blood Urea Nitrogen 20 mg/dl (9-20); Calcium 9.6 mg/dl (8.4-10.2); Carbon Dioxide 25 mmol/L (22-30); Chloride 109 mmol/L (98-107); Estimated Creatinine Clearance 74 ml/min; Glucose 86 mg/dl (70-99); Magnesium 2.4 mg/dl (1.6-2.3); Potassium 4.6 mmol/L (3.5-5.1); Sodium 142 mmol/L (135-145); eGFR > 60.00
[2025-02-01 08:36] LABS: Troponin I 0.030 ng/ml
[2025-02-01] MEDS: BUSPAR 5 MG PO (09:22)
[2025-02-01] MEDS: LIDOCAINE 4% PATCH 1 PATCH TOPICAL (09:22)
[2025-02-01] MEDS: BUSPAR 2.5 MG PO (09:22)
[2025-02-01] MEDS: ASPIR LOW (ENTERIC COATED) 81 MG PO (09:22)
[2025-02-01] MEDS: TRUSOPT 2% OPHTHALMIC SOLUTION 1 DROP BOTH EYES (09:23)
[2025-02-01] MEDS: TIMOPTIC 0.5% OPHTHALMIC SOLUTION 1 DROP BOTH EYES (09:23)
--- NOTE | 2025-02-01 10:08 | W.PN.HOSP.TC ---
Today's Communication/Plan
-
DC today
Assessment / Plan
Assessment / Plan
HPI: 65M from assisted living, chronic ambulatory dysfunction/ WC bound, Smoker, HX daily ETOH use, PMH CAD, HTN, Hypercholesterolemia, [place], schizoaffective disordered; p/w mechanical fall, hitting his head and also his left shoulder.
He is not on blood thinners. Denies to specific complaints other than some shoulder pain. Daily 4 [place] per day
ER evaluation noted elevated troponin and abnormal EKG.
CXR: NAD
L shoulder XR: no acute fracture or dislocation or shoulder separation. No abnormal soft tissue calcification.
HCT: No acute intracranial abnormality. No acute intracranial hemorrhage or extra-axial collection. No skull fracture. Stable findings consistent with known cavernous venous malformations.
CT Cervical Spine W/o Iv Contr:
No fracture identified.
Stable multilevel degenerative changes, as detailed above.
A/P:
# Elevated troponin, unclear cause currently
# h/o CAD
Pt is chest pain free
Troponin 0.037 -> peaked to 0.048
stress test 01/31 was unrevealing per director of sleep
Echo 01/31/2025: unrevealing, normal left ventricular size with mildly reduced systolic function. LVEF 40%. Akinesis of the basal inferior wall. Apical aneurysm. No significant valvular disease. Unchanged compared to prior echocardiogram in 2020.
off Heparin drip, cont current ASA
Ok for DC per director of sleep
# Mechanical Fall
No acute fracture noted on imaging
PT, OT : no skilled PT needed
# Hyperlipidemia
statin
# BPH HX
Flomax
# Schizoaffective disorder
# Cognitive dysfunction suspect chronic MCI vs mild dementia
# HX ETOH use disorder
Cont [employer] Zyprexa HS and lithium 450 mg HS
[place] level low at 0.5 on admission
# Assisted living resident of local [place]
# chronic ambulatory dysfunction
Essentially WC bound at baseline
DVT ppx: off heparin drip, cover with Lovenox SQ
Ful code
DW Card
updated daughter on the phone
DW CM
Anticipated Discharge: Today
Subjective/Interval History
-
Date of Service: February 01, 2025
Objective Data
-
Labs:
Laboratory Results
01/31/25 02/01/25
14:10 07:13
WBC 7.4
Hgb 15.1
Hct 46.0
Plt Count 171
APTT Cancelled
Sodium 142
Potassium 4.6
Chloride 109 H
Carbon Dioxide 25
BUN 20
Creatinine 0.9
Glucose 86
Calcium 9.6
Vital Signs:
Vital Signs
Temp Pulse Resp BP Pulse Ox
36.8 C 61 18 129/75 97
02/01/25 07:51 02/01/25 07:51 02/01/25 07:51 02/01/25 07:51 02/01/25 07:51
I&O
01/31/25 02/01/25 02/02/25
06:59 06:59 06:59
Intake Total 600 / 600 960 / 960
Output Total 1000 / 1000 730 / 880 300 / 300
Balance -400 / -400 230 / 80 -300 / -300
Review of Systems
-
All other systems: Reviewed and negative
Constitutional: Reports No Symptoms
Cardiac: Denies Chest Pain
Physical Exam
-
General: Well Developed, Well Nourished, No Apparent Distress, Comfortable and Conversant
HEENT: Normocephalic, Atraumatic, Nose Appears Normal and Ears Appear Normal
Respiratory: Clear to Auscultation and Non Labored Respirations; Negative Accessory Resp Muscle Use
Cardiac: Regular Rhythm and S1/S2
GI: Soft, Nontender, Nondistended and Normal Bowel Sounds
Skin: Warm and Dry
Neuro: Awake and Alert
Psych: Calm
Data Reviewed
-
Medical Tests (Nuc Med, Echo etc): Report Reviewed by me (echo)
Labs: Labs Reviewed by me
--- NOTE | 2025-02-01 10:20 | W.PN.CD ---
Today's Communication / Plan
-
OK for home
I asked the patien to follow in our office with Dr. Acuña. Our office will reach out
If you follow-up with us Dr. Acuña will work on advancing GDMT as tolerated
Impression / Plan
-
65-year-old male (previously known to Dr. Martinez; last seen as an outpatient in 2000) with coronary artery disease status-post CABG x 2 (2012; noncompliant with outpatient Cardiology follow-up), previous remote coronary stenting (2000), chronic
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
ambulatory dysfunction admitted after a fall whereby the patient lost his balance. The patient denies chest pain, but states that he has chronic shortness of breath. Cardiology was consulted for slightly elevated cardiac troponin. The patient is
a poor historian and does not quite answer questions appropriately.
Abnormal troponin: Nonischemic myocardial injury. Peak 0.048
Chronic HFmrEF/ICM:
- Compensated on examination.
- GDMT selected has previously been limited secondary to heart rate, blood pressure, and patient noncompliance/lack of Cardiology follow-up.
Hyperlipidemia=> LDL at goal of less than 55. Continue statin at current outpatient dose
Fall, We do not suspect syncope/cardiac cause
Alcohol use disorder: I suggested abstinence
Subjective: No CP or dyspnea
Data:
Stormy 01/31/2025:
Large fixed perfusion defect spanning the mid to apical anterior wall, septal wall, inferior, and inferolateral medrano. Also involving the true apex. Consistent with infarction.
Small fixed defect in the basal inferior wall consistent with infarction.
No evidence of ischemia.
Inconclusive ECG for ischemia given the pharmacological study.
Systolic function is moderately reduced. The ejection fraction is 34%
Echo 01/31/2025:
1. Normal left ventricular size with mildly reduced systolic function. LVEF 40%.
2. Akinesis of the basal inferior wall. Apical aneurysm.
3. No significant valvular disease.
4. Unchanged compared to prior echocardiogram in 2020.
Physical Exam
Vital Signs/Labs
Vital Signs
Temp Pulse Resp BP Pulse Ox
98.2 F 61 18 129/75 97
02/01/25 07:51 02/01/25 07:51 02/01/25 07:51 02/01/25 07:51 02/01/25 07:51
01/31/25 02/01/25 02/02/25
06:59 06:59 06:59
Actual Weight 73.992 kg 70.562 kg
02/01/25 07:13
02/01/25 07:13
APTT Cancelled 01/31/25 14:10
Magnesium 2.4 mg/dl (1.6-2.3) H 02/01/25 07:13
Triglycerides 142 mg/dl (10-149) 01/30/25 09:09
LDL Cholesterol, Calc 48 mg/dl 01/30/25 09:09
VLDL Cholesterol, Calc 28 mg/dl (0-30) 01/30/25 09:09
HDL Cholesterol 34 mg/dl 01/30/25 09:09
LAB Results
01/29/25 01/29/25 01/30/25
19:20 23:02 03:10
Troponin I 0.037 H* 0.045 H* 0.046 H*
01/30/25 02/01/25
09:41 07:13
Troponin I 0.048 H* 0.030
Physical Exam
Constitutional: No acute distress
EENT: Anicteric
Cardiovascular: Rhythm & rate is regular
Respiratory: Respiratory effort normal
GI: Soft
Neuro/Psych: AO x 3
Data Reviewed
-
Date of Service: February 01, 2025
--- NOTE | 2025-02-01 11:08 | CM ---
Chart reviewed. Patient stable for d/c back to [facility].
Updated [facility] admissions, confirmed SNF will pay for w/c van
Transport scheduled for 3 pm
Updated patient bedside, agreeable to d/c. IMM verbally reviewed, copy provided, copy on chart
[facility]- LTC
Report: [phone]

Plan: Return to [facility] today
--- NOTE | 2025-02-01 12:26 | W.DCSUMMARY ---
Discharge Summary
Discharge Data
Date of Admission: 01/29/25
Date of Discharge: 02/01/25
Total time spent discharging patient (in min): 40
-
Pending Results: No
Hospital Course
Principal Diagnosis:
Mechanical fall without fracture or dislocation etc.
Elevated troponin, likely non-DE troponin elevation.
Chronic Diagnoses:�
Hyperlipidemia
History of BPH, continue Flomax
Schizoaffective disorder
Cognitive dysfunction suspect chronic mild cognitive impairment vs mild dementia
History of alcohol use disorder
[facility] resident
Chronic ambulatory dysfunction, wheelchair-bound at baseline
Consultations:�
Cardiology
Procedures:�
Cardiac Lexiscan, result was unrevealing
Clinical course:�
This is a 65-year-old male, [facility] resident, with past medical history as stated above, who presented with mechanical fall and apparently hit his head and his left shoulder.
His admission troponin was also noted to be slightly elevated, hence he was also admitted for ACS rule out.
Problem 1:
Mechanical fall without fracture or dislocation etc.
Extensive imaging including CT head, CT cervical spine, shoulder x-ray, were all unrevealing.
Patient was seen by PT, who stated that there is no need for skilled PT.
Problem 2:
Elevated troponin, likely non-DE troponin elevation.
The patient's troponin peaked to 0.048.
He underwent cardiac stress test this admission on 01/31, and the result was unrevealing.
His echo this admission on 01/31/2025 was also unrevealing, showed normal left ventricular size with mildly reduced systolic function. LVEF 40%. Akinesis of the basal inferior wall. Apical aneurysm. No significant valvular disease. Unchanged compared
to prior echocardiogram in 2020.
He was briefly on heparin drip which was subsequently discontinued.
He can continue with his prior to admission aspirin.
As for the rest of his medical problems, they were stable during his hospital stay.
Discharge Plan
-
Patient Disposition: [facility]
Discharge Diagnosis/Procedures: Mechanical fall without fracture/dislocation etc.;
Elevated troponin likely non-DE troponin elevation
Condition: Fair
Diet: As tolerated, Low Fat and Low Cholesterol
Activity: As tolerated
Driving Restrictions: No driving
Referrals:
Emilio Joiner DO [Family Provider, Internal Medicine] - in less than 1 week
Prescriptions:
Continued
aspirin 81 MG tablet,delayed release (DR/EC)
81 mg PO DAILY
lithium carbonate 450 mg Tablet Extended Release
450 mg PO HS
buspirone 5 mg Tablet
5 mg PO BID
acetaminophen [Tylenol] 325 mg Tablet
650 mg PO Q4HPRN PRN (Reason: MILD PAIN)
ipratropium-albuterol 0.5 mg-3 mg(2.5 mg base)/3 mL Solution For Nebulization
3 ml INHALATION R QID
ipratropium-albuterol 0.5 mg-3 mg(2.5 mg base)/3 mL Solution For Nebulization
3 ml INHALATION R Q4HPRN PRN (Reason: SOB)
ketoconazole 2 % Shampoo
1 applic TOPICAL TUFR
lidocaine 4 % Adhesive Patch,Medicated
1 patch TOPICAL DAILY
loperamide [Imodium A-D] 2 mg Capsule
2 mg PO Q6HPRN PRN (Reason: DIARRHEA)
atorvastatin [Lipitor] 10 mg Tablet
10 mg PO HS
olanzapine [Zyprexa] 5 mg Tablet
5 mg PO HS
miconazole nitrate [Antifungal (miconazole)] 2 % Powder
1 applic TOPICAL BID
acetaminophen [Tylenol Extra Strength] 500 mg Tablet
1,000 mg PO TIDPRN PRN (Reason: MODERATE PAIN)
magnesium hydroxide [Milk of Magnesia] 400 mg/5 mL Suspension
2,400 mg PO [id number] PRN (Reason: CONSTIPATION)
bisacodyl [Dulcolax (bisacodyl)] 10 mg Suppository
10 mg ND DAILYPRN PRN (Reason: IF NO BM AFTR MOM)
Fleet Enema 19-7 gram/118 mL Enema
118 ml ND DAILYPRN PRN (Reason: CONSTIPATION)
nitroglycerin [Nitrostat] 0.4 mg Tablet, Sublingual
0.4 mg SUBLINGUAL [id number] PRN (Reason: CHEST PAIN)
fluticasone propionate 50 mcg/actuation [place],Suspension
2 spray INTRANASAL DAILY
mometasone 0.1 % Cream
1 applic TOPICAL [id number] PRN (Reason: FACE RASH)
melatonin 5 mg Tablet
5 mg PO HSPRN PRN (Reason: SLEEP)
dorzolamide-timolol (PF) [Cosopt (PF)] 2-0.5 % Dropperette
1 drp BOTH EYES BID
latanoprostene bunod 0.024 % Drops
1 drp BOTH EYES QPM
buspirone 5 mg tablet
2.5 mg PO DAILY
diclofenac sodium 1 % Gel
2 g TOPICAL QID
Discharge Orders:
Discharge Patient (As Directed); Ordered 02/01/25
Ordered By: Sierra Manning
Discharge Date and Time
Print Language: GREENLANDIC
[2025-02-01 12:29] VITALS: BP 123/67
== END 2025-02-01 16:00 | DRG 948 ==
LOC: 4 EAST ACU 21:08
PROVIDERS: Physician Assistant; Registered Nurse; Student in an Organized Health Care Education/Training Program; ADMITTING PHYSICIAN Internal Medicine; ATTENDING PHYSICIAN Internal Medicine; CONSULT PHYSICIAN Internal Medicine; EMERGENCY PHYSICIAN Student in an Organized Health Care Education/Training Program; FAMILY PHYSICIAN Internal Medicine
PROC: 4A12XM4 Monitoring of Cardiac Stress, External Approach (ICD-10-PCS; 2025-01-31)
PROC: 3E033HZ Introduction of Radioactive Substance into Peripheral Vein, Percutaneous Approach (ICD-10-PCS; 2025-01-31)
DX: R79.89 Other specified abnormal findings of blood chemistry (principal); F01.54 Vascular dementia, unspecified severity, with anxiety; F01.53 Vascular dementia, unspecified severity, with mood disturbance; I50.22 Chronic systolic (congestive) heart failure; W19.XXXA Unspecified fall, initial encounter; I25.10 Atherosclerotic heart disease of native coronary artery without angina pectoris; F31.9 Bipolar disorder, unspecified; I11.0 Hypertensive heart disease with heart failure; E78.00 Pure hypercholesterolemia, unspecified; H35.30 Unspecified macular degeneration; M19.90 Unspecified osteoarthritis, unspecified site; Z95.1 Presence of aortocoronary bypass graft; Z95.5 Presence of coronary angioplasty implant and graft; Z79.82 Long term (current) use of aspirin; F17.200 Nicotine dependence, unspecified, uncomplicated; F25.9 Schizoaffective disorder, unspecified; Z79.899 Other long term (current) drug therapy; N40.0 Benign prostatic hyperplasia without lower urinary tract symptoms; I45.10 Unspecified right bundle-branch block; Z99.3 Dependence on wheelchair; I44.0 Atrioventricular block, first degree; I49.3 Ventricular premature depolarization; K59.00 Constipation, unspecified; Q27.9 Congenital malformation of peripheral vascular system, unspecified; Z91.199 Patient's noncompliance with other medical treatment and regimen due to unspecified reason
CPT/HCPCS: 70450; 71046; 72125; 73030; 78452; 80048; 80053; 80061; 80178; 81003; 83036; 83735; 84484; 85025; 85027; 85730; 87070; 93005; 93017; 93306; 96365; 97163; 97167; 99285; A9500; J2785; Q9950

== ENCOUNTER 2025-03-02 11:36 | Emergency (ER) | payer MEDICARE, OTHER, SELFPAY ==
[2025-03-02 11:41] VITALS: BP 132/87
--- NOTE | 2025-03-02 14:19 | ED.GENMED ---
History of Present Illness
General
Chief Complaint: Weakness
Source: records, residential, residential records and previous hospital records
Exam Limitations: dementia
Time Seen by Provider: 03/02/25 14:08
History of Present Illness
History of Present Illness:
65-year-old male with a past medical history of dementia, known CAD with previous MS, hypertension, hyperlipidemia, peripheral vascular disease, paranoid schizophrenia, bipolar disorder and previous alcohol abuse presenting to the ER via EMS from
[facility], EMS reporting that staff at [facility] had noticed increased weakness in the patient today which is why he was sent to the hospital. Patient states to me his only concern right now is the pain in his bilateral hands which is
from neuropathy and unchanged from his baseline. Patient is unable to provide any history secondary to his known baseline mental status. I did contact [facility] and spoke with patient's nurse who states that since patient was last
hospitalized here he has not been himself but today they noticed that he was slumping forward in his chair more and seem to have a harder time expressing himself since awakening. Nursing staff notes that they did blood work and a urine test 2 days
ago which came back mostly unremarkable other than a slightly elevated BUN, urine culture negative.
Past History
Past History
ED Past Medical History: CAD, HTN, Hypercholesterolemia, MS and Psychiatric
ED Past Surgical History: Cardiac (Cardiac stenting)
Social History
Tobacco: Smoker
Alcohol: Former (4 [employer] [place] per day)
Drug: None
Personal:
Living: residential
Employment: Employed
Family History
Family History: Early CAD
Review of Systems
Review of Systems
All Other Systems: ROS reviewed and negative except as documented in HPI and ROS
Phy Exam
Physical Exam
Physical Exam:
GENERAL: Alert , in no apparent distress, appears older than stated age, unkempt,
HEAD: Normocephalic atraumatic
EYE: clear conjunctiva
NECK: Supple
ENT: mmm.
CARDIAC: Regular rate and rhythm .
LUNGS: Clear breath sounds bilaterally, no acute respiratory distress, no wheezes/rales/rhonchi
ABDOMEN: Soft, without focal tenderness, no r/g, no cvat
NEUROLOGICAL: Alert and oriented to self and place but not time. Patient is stuttering with multiple words but answering questions appropriately, MURPHY x 4
SKIN: Warm and dry, skin intact.
MUSCULOSKELETAL: No edema, well perfused.
PSYCH: Normal and appropriate interaction.
Scores
Heart Failure Risk
Heart Failure Risk Score: Not Applicable
Heart Score for Chest Pain Patients
STEMI patient?: Not applicable
Withdrawal Assessment of Alcohol
Withdrawal Assessment Completed?: Not applicable
Course
Orders/Labs/Results
Orders:
Orders
03/02/25 14:14
Electrocardiogram (*1) Urgent
Reason for Study: Fatigue / Weakness
EKG- Treatment ONCE
03/02/25 14:19
CT Head W/o Iv Contrast Urgent
Comment:
Reason For Exam: reported change in mental status
03/02/25 14:38
Ammonia Urgent
Complete Blood Count/With Diff Urgent
Comprehensive Metabolic Panel Urgent
Magnesium Urgent
TSH Urgent
03/02/25 17:36
Urinalysis Reflex To Culture Urgent
Date Specimen was Collected: 03/02/25
Time Specimen was Collected: 17:35
Urine Microscopic Reflex Cult Urgent
Abnormal Lab Results
03/02/25 03/02/25
14:38 17:36
Absolute Lymphs (auto) 1.0 L 10^3/uL
(1.2-3.4)
Lymphocytes % 14.7 L %
(20.5-51.1)
Eosinophils % 7.2 H %
(0-6)
Glucose 109 H mg/dl
(70-99)
Urine Bacteria (Reflex) Few A
(Negative)
Urine Albumin (Reflex) 1+ A
(Neg - Trace)
03/02/25 14:38
03/02/25 14:38
Vital Signs
Initial and Last Documented VS:
Initial Vital Signs
Temp Pulse Resp BP Pulse Ox
98.5 F 65 18 132/87 98
03/02/25 11:41 03/02/25 11:41 03/02/25 11:41 03/02/25 11:41 03/02/25 11:41
Last Documented Vital Signs
Temp Pulse Resp BP Pulse Ox
98.5 F 69 18 132/87 96
03/02/25 11:41 03/02/25 19:15 03/02/25 19:15 03/02/25 11:41 03/02/25 18:11
MDM/Problems Addressed
Differential Diagnosis Includes:
Electrolyte Imbalance
Anemia
CVA/TIA
Progression of dementia
UTI
Covid/Flu/Other viral etiology
Less concern for ACS especially given unremarkable work up 1 month ago
ICH
Medication side effects
MDM/Problems Addressed:
65-year-old male presenting to the ER from his residential for reported change in mental status, nursing staff stating to me that since he was hospitalized here 1 month ago is when they started to notice this change but however today patient seemed
a little bit more confused than usual and had a harder time sitting upright. No reported fevers or infectious symptoms otherwise. Patient's physical exam seems to reveal more of his chronic problems than any acute etiologies but given the reported
change in mental status will repeat labs, CT of the head, EKG and reassess following. Disposition pending.
Chronic conditions affecting care: CAD and Psychiatric illness
Acute Exacerbation and/or Progression of Chronic Illness: Psychiatric illness
*Radiology
Radiology exam reviewed: radiology read reviewed
*Pulse Oximetry
SaO2: 98
Oxygen Mode of Delivery: Room air
Patient hypoxic: no
*Critical Care Note
Total Time (30-74mins, 75-104mins- exclusive of procedures): Not Applicable
Data Reviewed
Review of Other/Old Records Reveals: Labs, Records and Discharge Summary
Source: records, ambulance crew and residential
Patient Management
Escalation/DeEscalation of care consider admission/obs:
Patient work up is largely unremarkable for any acute pathologies. CT with stable chronic findings. Will arrange for transport back to patients residential.
ED Attending Note
-
Portions of this chart may have been created with voice recognition software.� Occasional wrong word or��sound alike� substitutions may have occurred due to the inherent limitations of voice recognition software.
Discharge Plan
Departure
Patient Disposition: [facility]NF
Date of Disposition: 03/02/25
Time of Disposition: 17:54
Patient with high blood pressure during this ER visit?: No
Discharge Problem:
Dementia
Instructions: Dementia - ED (DC)
Prescriptions:
No Action
aspirin 81 MG tablet,delayed release (DR/EC)
81 mg PO DAILY
lithium carbonate 450 mg Tablet Extended Release
450 mg PO HS
buspirone 5 mg Tablet
10 mg PO HS
acetaminophen [Tylenol] 325 mg Tablet
650 mg PO TID
ipratropium-albuterol 0.5 mg-3 mg(2.5 mg base)/3 mL Solution For Nebulization
3 ml INHALATION R Q4HPRN PRN (Reason: sob)
ketoconazole 2 % Shampoo
1 applic TOPICAL TUFR
lidocaine 4 % Adhesive Patch,Medicated
1 patch TOPICAL DAILY
loperamide [Imodium A-D] 2 mg Capsule
2 mg PO Q6HPRN PRN (Reason: DIARRHEA)
atorvastatin [Lipitor] 10 mg Tablet
10 mg PO HS
olanzapine [Zyprexa] 5 mg Tablet
5 mg PO HS
miconazole nitrate [Antifungal (miconazole)] 2 % Powder
1 applic TOPICAL BID
magnesium hydroxide [Milk of Magnesia] 400 mg/5 mL Suspension
2,400 mg PO [id number] PRN (Reason: CONSTIPATION)
bisacodyl [Dulcolax (bisacodyl)] 10 mg Suppository
[address] DAILYPRN PRN (Reason: IF NO BM AFTR MOM)
Fleet Enema 19-7 gram/118 mL Enema
[address] DAILYPRN PRN (Reason: if no bm aftr dulcolax)
nitroglycerin [Nitrostat] 0.4 mg Tablet, Sublingual
0.4 mg SUBLINGUAL [id number] PRN (Reason: CHEST PAIN)
fluticasone propionate 50 mcg/actuation [place],Suspension
2 spray INTRANASAL DAILY
mometasone 0.1 % Cream
1 applic TOPICAL [id number] PRN (Reason: FACE RASH)
melatonin 5 mg Tablet
5 mg PO HSPRN PRN (Reason: SLEEP)
dorzolamide-timolol (PF) [Cosopt (PF)] 2-0.5 % Dropperette
1 drp BOTH EYES BID
buspirone 5 mg tablet
2.5 mg PO DAILY
diclofenac sodium 1 % Gel
2 g TOPICAL BID
Rx Instructions:
left arm/shoulder and lower back
latanoprost 0.005 % Drops
1 drp BOTH EYES HS
acetaminophen [Tylenol] 325 mg Tablet
650 mg PO Q4HPRN PRN (Reason: mild pain)
meloxicam [Mobic] 15 mg Tablet
15 mg PO DAILY
cyanocobalamin (vitamin B-12) 1,000 mcg Tablet
1,000 mcg PO DAILY
Referrals:
Emilio Joiner I. DO [Family Provider, Internal Medicine]
Interventions
Interventions:
*Risk Screen - Suicide Last Done: 03/02/25 11:41
*General Assessment Last Done: 03/02/25 11:41
*Neglect/Abuse Screening Last Done: 03/02/25 18:11
*ED- Fall Risk Assessment Last Done: 03/02/25 18:10
*ED COVID-19 Vaccine History Last Done: 03/02/25 18:10
ED- Cardiac Assessment Last Done: 03/02/25 18:11
ED- Neurological Assessment Last Done: 03/02/25 18:11
ED- Pulmonary Assessment Last Done: 03/02/25 18:11
Discharge Date and Time
Print Language: FAROESE
[2025-03-02 14:48] LABS: Hematocrit 45.8 % (39.0-52.0); Hemoglobin 15.3 g/dL (13.0-18.0); Mean Corp Hgb Conc. 33.4 g/dL (33.0-37.0); Mean Corpuscular Volume 84.8 fL (80.0-94.0); Nucleated Red Blood Cells % 0 % (-); Platelet Count 179 10^3/uL (130-400); Red Cell Dist. Width 13.7 % (11.5-14.5)
[2025-03-02 15:09] LABS: ALT (SGPT) 22 U/L (0-50); AST (SGOT) 21 U/L (17-59); Albumin 4.4 g/dl (3.5-5.0); Alkaline Phosphatase 59 U/L (38-126); Ammonia 13 umol/L (9-30); Blood Urea Nitrogen 17 mg/dl (9-20); Calcium 10.1 mg/dl (8.4-10.2); Carbon Dioxide 26 mmol/L (22-30); Chloride 106 mmol/L (98-107); Glucose 109 mg/dl (70-99); Magnesium 2.1 mg/dl (1.6-2.3); Potassium 4.4 mmol/L (3.5-5.1); Sodium 138 mmol/L (135-145); Total Protein 6.9 g/dl (6.3-8.2); eGFR > 60.00
[2025-03-02 15:45] LABS: TSH 0.88 uIU/ml (0.47-4.68)
[2025-03-02 17:51] LABS: Urine Character Clear (Clear)
[2025-03-02 18:11] LABS: Urine Red Blood Cell 0-2 /HPF (0-2); Urine Squamous Cell 0-2 /LPF (Few); Urine White Cell 0-2 /HPF (0-5)
== END 2025-03-02 23:08 ==
LOC: EMR 11:36
PROVIDERS: Physician Assistant Medical; EMERGENCY PHYSICIAN Emergency Medicine; FAMILY PHYSICIAN Internal Medicine
DX: F03.90 Unspecified dementia, unspecified severity, without behavioral disturbance, psychotic disturbance, mood disturbance, and anxiety (principal); I25.10 Atherosclerotic heart disease of native coronary artery without angina pectoris; I10 Essential (primary) hypertension; E78.00 Pure hypercholesterolemia, unspecified; I25.2 Old myocardial infarction; I73.9 Peripheral vascular disease, unspecified; F20.0 Paranoid schizophrenia; F31.9 Bipolar disorder, unspecified; G62.9 Polyneuropathy, unspecified; F17.200 Nicotine dependence, unspecified, uncomplicated; Z79.82 Long term (current) use of aspirin; Z95.5 Presence of coronary angioplasty implant and graft; Z82.49 Family history of ischemic heart disease and other diseases of the circulatory system
CPT/HCPCS: 99284; 70450; 80053; 81003; 81015; 82140; 83735; 84443; 85025; 93005